=== PATIENT | male | born 1990 | race Two or more races ===

== ENCOUNTER 2022-07-22 15:28 | Emergency (ER) | payer BC, SELFPAY ==
--- NOTE | ~2022-07-22 | CT_ITS ---
EXAMINATION: CT HEAD WITHOUT CONTRAST CLINICAL INFORMATION: Dizziness COMPARISON: None TECHNIQUE: Contiguous axial imaging was performed from the skull base to vertex without intravenous administration of contrast. This CT examination was performed using dose optimization techniques as appropriate, variously including the following: *Automated exposure control *Adjustment of mA and/or kV according to patient size (this includes techniques or standardized protocols for targeted exams where dose is matched to indication/reason for exam; i.e. extremities or head) *Use of iterative reconstruction technique Dose: 684 mGy-cm FINDINGS: There is no evidence of acute intracranial hemorrhage or territorial infarction. No abnormal mass-effect or midline shift is seen. Kohler to white matter differentiation is well preserved. No extra axial fluid collections. The ventricles are normal in size and configuration. There is no abnormal attenuation within the brain parenchyma. The soft tissues and osseous structures are normal. The sinuses and mastoid air cells are clear. CT/CT head/brain wo IV con IMPRESSION: No acute intracranial pathology.
[2022-07-22 15:33] VITALS: BP 124/68; PULSE 62; RESP 18; TEMP 36; O2SAT 98; BMI 26.2
--- NOTE | 2022-07-22 15:33 | ED_ITS ---
HPI - General Adult General Chief complaint: Headache <KENISHA Damon - Last Filed: 07/22/22 15:35> Stated complaint: dizziness,head pressure,weak <KENISHA Damon - Last Filed: 07/22/22 15:35> Time Seen by Provider: 07/22/22 18:58 <KENISHA Damon - Last Filed: 07/22/22 15:35> Source: patient <Demetrice Dutta MD - Last Filed: 07/22/22 19:28> Mode of arrival: ambulatory <Demetrice Dutta MD - Last Filed: 07/22/22 19:28> Limitations: no limitations <Demetrice Dutta MD - Last Filed: 07/22/22 19:28> History of Present Illness HPI narrative: 32-year-old male came in for evaluation of dizziness and the room spinning. Patient woke up this morning feeling dizzy and feel the room spinning around him with nausea and vomiting, symptoms worse with changing position quickly especially his head from right to left left to right or bending down then stand. With patient's symptoms been having nausea and vomiting. No fever, no chills, no runny nose, no coughing, no sneezing, no hearing problem, no ear pain. Patient also was with sinus congestion. <Demetrice Dutta MD - Last Filed: 07/22/22 19:28> Related Data Home medications: Previous Rx's Medication Instructions Recorded meclizine 25 mg tablet 25 mg PO BID PRN dizziness #30 tabs 07/22/22 <KENISHA Damon - Last Filed: 07/22/22 15:35> Allergies/adverse reactions: Allergies Allergy/AdvReac Type Severity Reaction Status Date / Time No Known Allergies Allergy Unverified 04/01/20 17:20 <KENISHA Damon - Last Filed: 07/22/22 15:35> Review of Systems Review of Systems: All other systems are reviewed and are negative Constitutional: Reports as per HPI and Reports no additional constitutional complaints Eyes: Reports as per HPI and Reports no additional eye complaints Reports system reviewed and no additional complaints, except as documented Cardiovascular: Reports as per HPI and Reports no additional cardiovascular complaints Respiratory: Reports as per HPI and Reports no additional respiratory complaints Gastrointestinal: Reports as per HPI and Reports no additional gastrointestinal complaints Genitourinary: Reports no additional female genitourinary complaints Musculoskeletal: Reports no additional musculoskeletal complaints Skin/Breast: Reports system reviewed and no additional complaints, except as docu Psychiatric: Reports no additional psychiatric complaints Endocrine: Reports no additional endocrine complaints Hematologic/Lymphatic: Reports no additional hematologic/lymphatic complaints Allergic/Immunologic: Reports no additional allergic/immunologic complaints Reports system reviewed and no additional complaints, except as documented and Reports Abnormal speech present <Demetrice Dutta MD - Last Filed: 07/22/22 19:28> REPLACED BY [facility] Social History Social History: Social History Advance Directives: No Advance Directives Information Provided: No <KENISHA Damon - Last Filed: 07/22/22 15:35> Physical Exam ED Vital Signs: Vital Signs - 24 hr 07/22/22 15:33 Temperature 96.8 F Pulse Rate 62 Respiratory Rate 18 Blood Pressure 124/68 Pulse Oximetry 98 Oxygen Delivery Method Room Air BMI result Body Mass Index 26.2 <KENISHA Damon - Last Filed: 07/22/22 15:35> Vital Signs - 24 hr 07/22/22 15:33 Temperature 96.8 F Pulse Rate 62 Respiratory Rate 18 Blood Pressure 124/68 Pulse Oximetry 98 Oxygen Delivery Method Room Air BMI result Body Mass Index 26.2 Insert normal via vital signs have been reviewed as appeared to be correct. Blood pressure normal. Heart rate normal. Respiration rate normal. Temperature normal. Oxygen saturation normal. <Demetrice Dutta MD - Last Filed: 07/22/22 19:28> Appearance: Alert. Oriented X3. No acute distress. Head: Normal external exam. Normocephalic. Atraumatic. No Tovar signs noted. No raccoon eyes noted Eyes: PERRLA. EOMI. Conjunctiva and sclera normal. Eyelids normal. ENT: TM's Normal. Pharynx normal. Uvula midline. Moist mucous membranes. No trismus noted. No drooling noted. No muffled voice noted. Neck: Normal inspection. Neck supple. FROM. No adenopathy. Thyroid Normal. No meningeal signs. No neck mass noted. CVS: Normal heart rate and rhythm. Heart sound normal. No murmurs noted. Pulses normal throughout. Respiratory: No respiratory distress. Painless inspiration. Breath sounds normal. No wheezes/rales/rhonchi noted. Chest nontender. No accessory muscle usage noted or decreased air movement noted. Abdomen: Soft and nontender. Bowel sounds normal in all 4 quadrants. No distention noted. No organomegaly noted. No visible injury noted. Back: No CVA tenderness. Full range of motion noted. Skin: Skin warm and dry. Normal skin color. Normal skin turgor. No rashes/lesions/lacerations noted. Extremities: No lower extremity edema. Extremities exhibit normal range of motion. Extremities nontender. Neuro: Oriented X 3. Cranial nerve exam: II-XII are grossly intact No motor deficit. No sensory deficit. Reflexes normal. Cerebellar exam: No [id number] dysmetria, no nystagmus. <Demetrice Dutta MD - Last Filed: 07/22/22 19:28> Course Course Course Narrative: RME performed by Sola Jones PA-C. Patient is a 32 year old male presenting to the emergency department with dizziness, nausea, and feeling generally unwell. Labs and swabs ordered. Patient placed back in waiting room pending results and room availability. <KENISHA Damon - Last Filed: 07/22/22 15:35> Reevaluation(s) Reevaluation #1: Peripheral benign positional vertigo start on meclizine. <Demetrice Dutta MD - Last Filed: 07/22/22 19:28> Time: 19:23 <Demetrice Dutta MD - Last Filed: 07/22/22 19:28> Medical Decision Making Differential Diagnosis Differential Diagnoses: The differential diagnosis associated with the presentation includes (Sinusitis, upper respiratory infection, intracranial pathology, benign positional vertigo.) <Demetrice Dutta MD - Last Filed: 07/22/22 19:28> Lab Data MDM Lab Attestation statement: I reviewed the patient's lab results. <Demetrice Dutta MD - Last Filed: 07/22/22 19:28> Result Diagrams: 07/22/22 16:19 07/22/22 16:19 <KENISHA Damon - Last Filed: 07/22/22 15:35> Labs: Lab Results 07/22/22 07/22/22 07/22/22 Range/Units 16:19 16:19 16:19 WBC 6.9 (4.8-10.8) X10*3/uL RBC 5.08 (4.60-5.80) X10*6/uL Hgb 15.7 (14.0-18.0) g/dl Hct 45.7 (42.0-52.0) % MCV 90.0 (80.0-98.0) fL MCH 30.9 (27.0-33.0) pg MCHC 34.4 (31.0-36.0) g/dl RDW 11.8 (11.0-16.0) % Plt Count 220 (160-400) X10*3/uL MPV 9.7 (9.4-12.4) fL Immature Gran % (Auto) 0.1 (0.0-0.4) % Neut % (Auto) 58.0 (45-73) % Lymph % (Auto) 33.4 (20-40) % [place] % (Auto) 6.8 (2-11) % Eos % (Auto) 1.6 (0-4) % Baso % (Auto) 0.1 (0-2) % Lymph # (Auto) 2.3 (1.2-4.9) X10*3/uL [place] # (Auto) 0.5 (0.1-1.2) X10*3/uL Eos # (Auto) 0.1 (0.0-0.4) X10*3/uL Baso # (Auto) 0.0 (0.0-0.2) X10*3/uL Abs Immat Gran (auto) 0.01 (0.00-0.03) X10*3/uL Absolute Neuts (auto) 4.0 (2.0-8.3) x10*3/uL Absolute Nucleated RBC 0.000 (0.0-0.012) X10*3/uL Nucleated RBC % (auto) 0.0 (0.0-0.2) /100WBC Sodium 141 (135-145) mmol/L Potassium 4.4 (3.3-5.1) mmol/L Chloride 106 (96-108) mmol/L Carbon Dioxide 28 (22-29) mmol/L Anion Gap 11 L (12-20) BUN 14 (9-16) mg/dL Creatinine 0.98 (0.5-1.4) mg/dL Estim Creat Clear Calc 103.7 Estimated GFR > 60 Random Glucose 128 H (60-115) mg/dL Calcium 9.6 (8.4-10.2) mg/dL Magnesium 2.0 (1.6-2.6) mg/dL Total Bilirubin 0.7 (0.0-1.0) mg/dL AST 17 (5-37) U/L ALT 16 (0-40) U/L Alkaline Phosphatase 59 (39-117) U/L Total Protein 7.0 (6.5-8.0) g/dL Albumin 4.4 (3.5-5.0) g/dL Influenza Type A (PCR) NEGATIVE (Negative) Influenza Type B (PCR) NEGATIVE (Negative) RSV RNA Qual (PCR) NEGATIVE (Negative) SARS-CoV-2 RNA (RT-PCR) NEGATIVE (Negative) <KENISHA Damon - Last Filed: 07/22/22 15:35> Lab Results 07/22/22 07/22/22 07/22/22 Range/Units 16:19 16:19 16:19 WBC 6.9 (4.8-10.8) X10*3/uL RBC 5.08 (4.60-5.80) X10*6/uL Hgb 15.7 (14.0-18.0) g/dl Hct 45.7 (42.0-52.0) % MCV 90.0 (80.0-98.0) fL MCH 30.9 (27.0-33.0) pg MCHC 34.4 (31.0-36.0) g/dl RDW 11.8 (11.0-16.0) % Plt Count 220 (160-400) X10*3/uL MPV 9.7 (9.4-12.4) fL Immature Gran % (Auto) 0.1 (0.0-0.4) % Neut % (Auto) 58.0 (45-73) % Lymph % (Auto) 33.4 (20-40) % [place] % (Auto) 6.8 (2-11) % Eos % (Auto) 1.6 (0-4) % Baso % (Auto) 0.1 (0-2) % Lymph # (Auto) 2.3 (1.2-4.9) X10*3/uL [place] # (Auto) 0.5 (0.1-1.2) X10*3/uL Eos # (Auto) 0.1 (0.0-0.4) X10*3/uL Baso # (Auto) 0.0 (0.0-0.2) X10*3/uL Abs Immat Gran (auto) 0.01 (0.00-0.03) X10*3/uL Absolute Neuts (auto) 4.0 (2.0-8.3) x10*3/uL Absolute Nucleated RBC 0.000 (0.0-0.012) X10*3/uL Nucleated RBC % (auto) 0.0 (0.0-0.2) /100WBC Sodium 141 (135-145) mmol/L Potassium 4.4 (3.3-5.1) mmol/L Chloride 106 (96-108) mmol/L Carbon Dioxide 28 (22-29) mmol/L Anion Gap 11 L (12-20) BUN 14 (9-16) mg/dL Creatinine 0.98 (0.5-1.4) mg/dL Estim Creat Clear Calc 103.7 Estimated GFR > 60 Random Glucose 128 H (60-115) mg/dL Calcium 9.6 (8.4-10.2) mg/dL Magnesium 2.0 (1.6-2.6) mg/dL Total Bilirubin 0.7 (0.0-1.0) mg/dL AST 17 (5-37) U/L ALT 16 (0-40) U/L Alkaline Phosphatase 59 (39-117) U/L Total Protein 7.0 (6.5-8.0) g/dL Albumin 4.4 (3.5-5.0) g/dL Influenza Type A (PCR) NEGATIVE (Negative) Influenza Type B (PCR) NEGATIVE (Negative) RSV RNA Qual (PCR) NEGATIVE (Negative) SARS-CoV-2 RNA (RT-PCR) NEGATIVE (Negative) <Demetrice Dutta MD - Last Filed: 07/22/22 19:28> Independent Interpretation I performed an independent interpretation of an: CT Scan (Head: No acute intracranial pathology.) <Demetrice Dutta MD - Last Filed: 07/22/22 19:28> Radiology Impression Discussion of test interpretation with radiology: I have reviewed the radiologist's reading. <Demetrice Dutta MD - Last Filed: 07/22/22 19:28> Discharge Plan Discharge Clinical Impression: Benign paroxysmal positional vertigo <KENISHA Damon - Last Filed: 07/22/22 15:35> Patient Disposition: Home, Self-Care <KENISHA Damon - Last Filed: 07/22/22 15:35> Instructions: Benign Paroxysmal Positional Vertigo (ED) <KENISHA Damon - Last Filed: 07/22/22 15:35> Prescriptions: New meclizine 25 mg tablet 25 mg PO BID PRN (Reason: dizziness) Qty: 30 0RF <KENISHA Damon - Last Filed: 07/22/22 15:35> Referrals: Dominique Khoury PA [Primary Care Provider] - <KENISHA Damon - Last Filed: 07/22/22 15:35>
[2022-07-22 16:25] LABS: MANUAL DIFF FLAG NO
[2022-07-22 16:36] LABS: Basophils Percent Auto 0.1 % (0-2); Eosinophils Absolute Auto 0.1 X10*3/uL (0.0-0.4); Eosinophils Percent Auto 1.6 % (0-4); Hematocrit 45.7 % (42.0-52.0); Hemoglobin 15.7 g/dl (14.0-18.0); Imm Gran Abs Auto 0.01 X10*3/uL (0.00-0.03); Imm Gran Pct Auto 0.1 % (0.0-0.4); Lymphocytes Absolute Auto 2.3 X10*3/uL (1.2-4.9); Lymphocytes Percent Auto 33.4 % (20-40); Mean Corpuscular HGB Conc 34.4 g/dl (31.0-36.0); Mean Corpuscular Hemoglobin 30.9 pg (27.0-33.0); Mean Platelet Volume 9.7 fL (9.4-12.4); Monocytes Absolute Auto 0.5 X10*3/uL (0.1-1.2); Monocytes Percent Auto 6.8 % (2-11); Platelet Count 220 X10*3/uL (160-400); Red Blood Count 5.08 X10*6/uL (4.60-5.80); Red Cell Distribution Width 11.8 % (11.0-16.0); White Blood Count 6.9 X10*3/uL (4.8-10.8)
[2022-07-22 16:39] LABS: Alanine Aminotransferase 16 U/L (0-40); Albumin Level 4.4 g/dL (3.5-5.0); Alkaline Phosphatase 59 U/L (39-117); Anion Gap 11 (12-20); Aspartate Amino Transferase 17 U/L (5-37); Bilirubin Total 0.7 mg/dL (0.0-1.0); Blood Urea Nitrogen 14 mg/dL (9-16); Calcium 9.6 mg/dL (8.4-10.2); Carbon Dioxide 28 mmol/L (22-29); Chloride 106 mmol/L (96-108); Creatinine Clr Calc Pharmacy 103.7; Estimated Glomerular Filt Rate > 60; Glucose Random 128 mg/dL (60-115); Potassium 4.4 mmol/L (3.3-5.1); Sodium 141 mmol/L (135-145)
[2022-07-22 17:02] LABS: Influenza A PCR NEGATIVE (Negative); Influenza B PCR NEGATIVE (Negative); Resp Syncy Virus RNA Qual PCR NEGATIVE (Negative); SARS COV2 PCR INHOUSE NEGATIVE (Negative)
--- NOTE | 2022-07-22 19:02 | PC.NURSE ---
Pt resting quietly, given ice pack. No other needs expressed.
[2022-07-22] MEDS: Meclizine HCl 25 MG TABLET PO (19:28)
--- NOTE | 2022-07-22 19:30 | PC.NURSE ---
Pt taking to CT by engineer technical staff.
[2022-07-22] MEDS: Acetaminophen 325 MG TABLET 650 MG PO (21:16)
== END 2022-07-22 22:37 | disposition home or self-care (01) ==
PROVIDERS: Physician Assistant Medical; Emergency Provider Emergency Medicine; PCP Physician Assistant
DX: H81.10 Benign paroxysmal vertigo, unspecified ear (principal); R51.9 Headache, unspecified; Z20.822 Contact with and (suspected) exposure to COVID-19; Z20.828 Contact with and (suspected) exposure to other viral communicable diseases
CPT/HCPCS: 0241U; 70450; 80053; 83735; 85025; 99283; 99284

== ENCOUNTER 2022-10-24 17:04 | Emergency (ER) | payer BC, SELFPAY ==
--- NOTE | ~2022-10-24 | CT_ITS ---
EXAMINATION: CT ABDOMEN AND PELVIS WITHOUT CONTRAST CLINICAL INFORMATION: Bilateral flank pain COMPARISON: 08/24/2016 TECHNIQUE: Multidetector volumetric imaging was performed from the superior aspect of the liver through the pubic symphysis. Sagittal and coronal reformatted images were obtained on the technologist's workstation. This CT examination was performed using dose optimization techniques as appropriate, variously including the following: *Automated exposure control *Adjustment of mA and/or kV according to patient size (this includes techniques or standardized protocols for targeted exams where dose is matched to indication/reason for exam; i.e. extremities or head) *Use of iterative reconstruction technique DLP: 548 mGy-cm FINDINGS: LUNG BASES: The visualized lung bases are unremarkable. LIVER, GALLBLADDER, AND BILIARY TREE: The liver is normal in size, shape, and attenuation. No focal hepatic lesion or biliary ductal dilatation is present. The gallbladder is unremarkable with no evidence of radiopaque gallstones, gallbladder wall thickening, or obvious pericholecystic inflammatory changes. PANCREAS: Unremarkable. SPLEEN: Unremarkable. ADRENAL GLANDS: Unremarkable. KIDNEYS AND URETERS: The current study, there is a 5 mm central left-sided stone. Adjacent 1 mm lower pole calyceal stone. No right-sided stone. No hydronephrosis or perinephric abnormality. BLADDER: Unremarkable. GASTROINTESTINAL TRACT: Scattered diverticula without acute inflammatory changes. No small bowel or mesenteric lesion. Appendix appears normal. ABDOMINAL WALL: No significant hernia is appreciated. LYMPH NODES: Normal. VASCULAR: Unremarkable. PELVIC VISCERA: Unremarkable. OSSEOUS STRUCTURES: Unremarkable. CT/CT abdomen pelvis wo IV con IMPRESSION: Nonobstructing left-sided renal calculi as above. Fleischner guidelines were followed.
[2022-10-24 17:12] VITALS: BP 140/65; PULSE 71; RESP 18; TEMP 36.8; O2SAT 98; BMI 27.0
--- NOTE | 2022-10-24 17:12 | ED.BACK ---
HPI - Back Pain/Injury General Chief Complaint: Urogenital-Male <KENISHA Mireles - Last Filed: 10/24/22 17:15> Stated Complaint: Lower back pain/?Kidney stones <KENISHA Mireles - Last Filed: 10/24/22 17:15> Time Seen by Provider: 10/24/22 21:15 <KENISHA Mireles - Last Filed: 10/24/22 17:15> Source: patient <Brittany Zuñiga MD - Last Filed: 10/24/22 22:32> Mode of arrival: ambulatory <Brittany Zuñiga MD - Last Filed: 10/24/22 22:32> History of Present Illness HPI Narrative: 32-year-old male with history of renal colic presents with complaints of bilateral back discomfort and reports irritation with urination but denies any fever, chills and provides additional information stating that he lifted something heavy at work a few days ago. Denies any fevers, chills, drug use and denies any difficulty with bowel or bladder. <Brittany Zuñiga MD - Last Filed: 10/24/22 22:32> Related Data Home Medications: Previous Rx's Medication Instructions Recorded meclizine 25 mg tablet 25 mg PO BID PRN dizziness #30 tabs 07/22/22 cyclobenzaprine 5 mg tablet 5 mg PO BEDTIME PRN muscle spasm 10/24/22 #4 tabs <KENISHA Mireles - Last Filed: 10/24/22 17:15> Allergies/Adverse Reactions: Allergies Allergy/AdvReac Type Severity Reaction Status Date / Time No Known Allergies Allergy Unverified 04/01/20 17:20 <KENISHA Mireles - Last Filed: 10/24/22 17:15> Review of Systems Review of Systems: Pertinent positives and negatives as stated in HPI <Brittany Zuñiga MD - Last Filed: 10/24/22 22:32> PMFSH Past Medical History Source: nursing notes reviewed <Brittany Zuñiga MD - Last Filed: 10/24/22 22:32> Social History Social History: Social History Smoked in Last 30 Days: No Use of substances other than those prescribed or required for medical reasons: No Advance Directives: No Advance Directives Information Provided: Yes <KENISHA Mireles - Last Filed: 10/24/22 17:15> Physical Exam Vital Signs: Vital Signs: Last Vital Signs Temp 97.7 F 10/24/22 20:29 Pulse 68 10/24/22 20:29 Resp 15 10/24/22 20:29 BP 110/71 10/24/22 20:29 Pulse Ox 94 10/24/22 20:29 O2 Del Method Room Air 10/24/22 20:29 BMI result Body Mass Index 27.0 <KENISHA Mireles - Last Filed: 10/24/22 17:15> Vital Signs: Last Vital Signs Temp 97.7 F 10/24/22 20:29 Pulse 68 10/24/22 20:29 Resp 15 10/24/22 20:29 BP 110/71 10/24/22 20:29 Pulse Ox 94 10/24/22 20:29 O2 Del Method Room Air 10/24/22 20:29 BMI result Body Mass Index 27.0 VITAL SIGNS: Reviewed. GENERAL: Well developed, well nourished, in no acute distress. HEAD: Normocephalic/atraumatic EYES: PERRLA, EOMI LUNGS: Normal breath sounds. No adventitious sounds or accessory muscle use. SpO2<94> CARDIOVASCULAR: Regular rate and rhythm without noted murmurs ABDOMEN: Soft, non-tender, non-distended with bowel sounds. BACK: No midline vertebral tenderness or step-offs, pre extensive muscle pain on palpation from lower thoracic to include paraspinal lumbar area without erythema. MUSCULOSKELETAL: No tenderness, deformities, or effusions noted on gross inspection. EXTREMITIES: No cyanosis, clubbing or edema. SKIN: Inspection of the skin reveals no rashes NEUROLOGIC: Alert and oriented x 4. Strength and sensation to light touch were grossly intact x 4. <Brittany Zuñiga MD - Last Filed: 10/24/22 22:32> Course Course Course Narrative: RME--32yo M w/ PMHx renal stone c/o bilateral flank pain radiating to abdomen > R side x4 days. Also reports dysuria. denies hematuria, N/V Labs, UA, CT ordered <KENISHA Mireles - Last Filed: 10/24/22 17:15> Medications Administered Discontinued Medications Generic Name Dose Route Start Last Admin Trade Name Freq PRN Reason Stop Dose Admin Acetaminophen 975 mg 10/24/22 21:52 10/24/22 22:21 Acetaminophen 325 Mg Tablet PO 10/24/22 21:53 975 mg ONCE ONE Administration Ibuprofen 400 mg 10/24/22 21:52 10/24/22 22:22 Ibuprofen 400 Mg Tablet PO 10/24/22 21:53 400 mg ONCE ONE Administration Lidocaine 1 patch 10/24/22 22:12 10/24/22 22:22 Lidocaine 4 % Patch Adh..Patch TRANSDERMA 10/24/22 22:13 1 patch ONCE ONE Administration Protocol <KENISHA Mireles - Last Filed: 10/24/22 17:15> Medications Administered Discontinued Medications Generic Name Dose Route Start Last Admin Trade Name Freq PRN Reason Stop Dose Admin Acetaminophen 975 mg 10/24/22 21:52 10/24/22 22:21 Acetaminophen 325 Mg Tablet PO 10/24/22 21:53 975 mg ONCE ONE Administration Ibuprofen 400 mg 10/24/22 21:52 10/24/22 22:22 Ibuprofen 400 Mg Tablet PO 10/24/22 21:53 400 mg ONCE ONE Administration Lidocaine 1 patch 10/24/22 22:12 10/24/22 22:22 Lidocaine 4 % Patch Adh..Patch TRANSDERMA 10/24/22 22:13 1 patch ONCE ONE Administration Protocol <Brittany Zuñiga MD - Last Filed: 10/24/22 22:32> Medical Decision Making Medical Decision Making MDM Narrative: 32-year-old male with history and clinical presentation unlikely to be renal colic given the bilaterality of presentation and suspect this is more musculoskeletal in etiology given the description of lifting something at work. I reviewed all investigations to include imaging and although there is a nonobstructing renal calculus on the left there are no other intra-abdominal findings. Lab work without acute findings. My interpretation is this is musculoskeletal in nature and likely involves combination of strain and spasm. Patient was provided with combination analgesics to include a lidocaine patch. <Brittany Zuñiga MD - Last Filed: 10/24/22 22:32> Differential Diagnosis Please see the discussion above <Brittany Zuñiga MD - Last Filed: 10/24/22 22:32> Lab Data Please see the discussion above <Brittany Zuñiga MD - Last Filed: 10/24/22 22:32> Result Diagrams: 10/24/22 17:37 10/24/22 17:37 <KENISHA Mireles - Last Filed: 10/24/22 17:15> Labs: Lab Results 10/24/22 10/24/22 10/24/22 Range/Units 17:37 17:37 21:06 WBC 7.6 (4.8-10.8) X10*3/uL RBC 4.69 (4.60-5.80) X10*6/uL Hgb 14.6 (14.0-18.0) g/dl Hct 41.1 L (42.0-52.0) % MCV 87.6 (80.0-98.0) fL MCH 31.1 (27.0-33.0) pg MCHC 35.5 (31.0-36.0) g/dl RDW 11.8 (11.0-16.0) % Plt Count 196 (160-400) X10*3/uL MPV 9.6 (9.4-12.4) fL Immature Gran % (Auto) 0.3 (0.0-0.4) % Neut % (Auto) 47.7 (45-73) % Lymph % (Auto) 41.3 H (20-40) % [place] % (Auto) 6.9 (2-11) % Eos % (Auto) 3.4 (0-4) % Baso % (Auto) 0.4 (0-2) % Lymph # (Auto) 3.2 (1.2-4.9) X10*3/uL [place] # (Auto) 0.5 (0.1-1.2) X10*3/uL Eos # (Auto) 0.3 (0.0-0.4) X10*3/uL Baso # (Auto) 0.0 (0.0-0.2) X10*3/uL Abs Immat Gran (auto) 0.02 (0.00-0.03) X10*3/uL Absolute Neuts (auto) 3.6 (2.0-8.3) x10*3/uL Absolute Nucleated RBC 0.000 (0.0-0.012) X10*3/uL Nucleated RBC % (auto) 0.0 (0.0-0.2) /100WBC Sodium 140 (135-145) mmol/L Potassium 4.3 (3.3-5.1) mmol/L Chloride 106 (96-108) mmol/L Carbon Dioxide 25 (22-29) mmol/L Anion Gap 13 (12-20) BUN 18 H (9-16) mg/dL Creatinine 1.09 (0.5-1.4) mg/dL Estim Creat Clear Calc 93.2 Estimated GFR > 60 Random Glucose 115 (60-115) mg/dL Calcium 9.3 (8.4-10.2) mg/dL Magnesium 1.9 (1.6-2.6) mg/dL Total Bilirubin 0.6 (0.0-1.0) mg/dL Direct Bilirubin 0.2 (0.0-0.5) mg/dL AST 19 (5-37) U/L ALT 18 (0-40) U/L Alkaline Phosphatase 59 (39-117) U/L Total Protein 6.4 L (6.5-8.0) g/dL Albumin 4.2 (3.5-5.0) g/dL Lipase 15 (8-78) U/L Urine Color Yellow Urine Appearance Clear Urine pH 6.5 (5.0-9.0) Ur Specific [place] 1.010 (1.005-1.025) Urine Protein Negative (Neg-Trace) mg/dL Urine Glucose (UA) Negative (Negative) mg/dL Urine Ketones Negative (Negative) mg/dL Urine Blood Negative (Negative) Urine Nitrite Negative (Negative) Ur Leukocyte Esterase Negative (Negative) <KENISHA Mireles - Last Filed: 10/24/22 17:15> Lab Results 10/24/22 10/24/22 10/24/22 Range/Units 17:37 17:37 21:06 WBC 7.6 (4.8-10.8) X10*3/uL RBC 4.69 (4.60-5.80) X10*6/uL Hgb 14.6 (14.0-18.0) g/dl Hct 41.1 L (42.0-52.0) % MCV 87.6 (80.0-98.0) fL MCH 31.1 (27.0-33.0) pg MCHC 35.5 (31.0-36.0) g/dl RDW 11.8 (11.0-16.0) % Plt Count 196 (160-400) X10*3/uL MPV 9.6 (9.4-12.4) fL Immature Gran % (Auto) 0.3 (0.0-0.4) % Neut % (Auto) 47.7 (45-73) % Lymph % (Auto) 41.3 H (20-40) % [place] % (Auto) 6.9 (2-11) % Eos % (Auto) 3.4 (0-4) % Baso % (Auto) 0.4 (0-2) % Lymph # (Auto) 3.2 (1.2-4.9) X10*3/uL [place] # (Auto) 0.5 (0.1-1.2) X10*3/uL Eos # (Auto) 0.3 (0.0-0.4) X10*3/uL Baso # (Auto) 0.0 (0.0-0.2) X10*3/uL Abs Immat Gran (auto) 0.02 (0.00-0.03) X10*3/uL Absolute Neuts (auto) 3.6 (2.0-8.3) x10*3/uL Absolute Nucleated RBC 0.000 (0.0-0.012) X10*3/uL Nucleated RBC % (auto) 0.0 (0.0-0.2) /100WBC Sodium 140 (135-145) mmol/L Potassium 4.3 (3.3-5.1) mmol/L Chloride 106 (96-108) mmol/L Carbon Dioxide 25 (22-29) mmol/L Anion Gap 13 (12-20) BUN 18 H (9-16) mg/dL Creatinine 1.09 (0.5-1.4) mg/dL Estim Creat Clear Calc 93.2 Estimated GFR > 60 Random Glucose 115 (60-115) mg/dL Calcium 9.3 (8.4-10.2) mg/dL Magnesium 1.9 (1.6-2.6) mg/dL Total Bilirubin 0.6 (0.0-1.0) mg/dL Direct Bilirubin 0.2 (0.0-0.5) mg/dL AST 19 (5-37) U/L ALT 18 (0-40) U/L Alkaline Phosphatase 59 (39-117) U/L Total Protein 6.4 L (6.5-8.0) g/dL Albumin 4.2 (3.5-5.0) g/dL Lipase 15 (8-78) U/L Urine Color Yellow Urine Appearance Clear Urine pH 6.5 (5.0-9.0) Ur Specific [place] 1.010 (1.005-1.025) Urine Protein Negative (Neg-Trace) mg/dL Urine Glucose (UA) Negative (Negative) mg/dL Urine Ketones Negative (Negative) mg/dL Urine Blood Negative (Negative) Urine Nitrite Negative (Negative) Ur Leukocyte Esterase Negative (Negative) <Brittany Zuñiga MD - Last Filed: 10/24/22 22:32> Radiology Impression Radiologist Impression: My interpretation is in agreement with radiology's impression of the imaging studies. <Brittany Zuñiga MD - Last Filed: 10/24/22 22:32> External Record Review External record reviewed: Prior outpatient labs <Brittany Zuñiga MD - Last Filed: 10/24/22 22:32> Discharge Plan Discharge Clinical Impression: Back pain, Muscle strain, Muscle spasm <KENISHA Mireles - Last Filed: 10/24/22 17:15> Patient Disposition: Home, Self-Care <KENISHA Mireles - Last Filed: 10/24/22 17:15> Instructions: Muscle Strain (ED), Muscle Spasm (ED), Back Pain (ED), Lower Back Exercises (ED) <KENISHA Mireles - Last Filed: 10/24/22 17:15> Additional Instructions: 1. Tylenol 1000 mg, orally, every 6 hours as needed for pain control. Do not exceed 4000 mg within 24 hours. 2. Ibuprofen 400 mg, orally with milk or food, every 6 hours as needed for pain control. I recommend that you take this in combination with Tylenol for improved symptom relief 3. Lidocaine patch, apply to area of maximal tenderness as directed on the outside packaging. 4. Follow-up with your primary care provider. Return to the ER for any worsening symptoms. <KENISHA Mireles - Last Filed: 10/24/22 17:15> Prescriptions: New cyclobenzaprine 5 mg tablet 5 mg PO BEDTIME PRN (Reason: muscle spasm) Qty: 4 0RF No Action meclizine 25 mg tablet 25 mg PO BID PRN (Reason: dizziness) Qty: 30 0RF <KENISHA Mireles - Last Filed: 10/24/22 17:15> Referrals: Dominique Khoury PA [Primary Care Provider] - <KENISHA Mireles - Last Filed: 10/24/22 17:15>
[2022-10-24 17:43] LABS: MANUAL DIFF FLAG NO
[2022-10-24 17:47] LABS: Basophils Percent Auto 0.4 % (0-2); Eosinophils Absolute Auto 0.3 X10*3/uL (0.0-0.4); Eosinophils Percent Auto 3.4 % (0-4); Hematocrit 41.1 % (42.0-52.0); Hemoglobin 14.6 g/dl (14.0-18.0); Imm Gran Abs Auto 0.02 X10*3/uL (0.00-0.03); Imm Gran Pct Auto 0.3 % (0.0-0.4); Lymphocytes Absolute Auto 3.2 X10*3/uL (1.2-4.9); Lymphocytes Percent Auto 41.3 % (20-40); Mean Corpuscular HGB Conc 35.5 g/dl (31.0-36.0); Mean Corpuscular Hemoglobin 31.1 pg (27.0-33.0); Mean Corpuscular Volume 87.6 fL (80.0-98.0); Mean Platelet Volume 9.6 fL (9.4-12.4); Monocytes Absolute Auto 0.5 X10*3/uL (0.1-1.2); Monocytes Percent Auto 6.9 % (2-11); Neutrophils Absolute Auto 3.6 x10*3/uL (2.0-8.3); Neutrophils Percent Auto 47.7 % (45-73); Platelet Count 196 X10*3/uL (160-400); Red Blood Count 4.69 X10*6/uL (4.60-5.80); Red Cell Distribution Width 11.8 % (11.0-16.0); White Blood Count 7.6 X10*3/uL (4.8-10.8)
[2022-10-24 18:03] LABS: Alanine Aminotransferase 18 U/L (0-40); Albumin Level 4.2 g/dL (3.5-5.0); Alkaline Phosphatase 59 U/L (39-117); Anion Gap 13 (12-20); Aspartate Amino Transferase 19 U/L (5-37); Bilirubin Direct 0.2 mg/dL (0.0-0.5); Bilirubin Total 0.6 mg/dL (0.0-1.0); Blood Urea Nitrogen 18 mg/dL (9-16); Calcium 9.3 mg/dL (8.4-10.2); Carbon Dioxide 25 mmol/L (22-29); Chloride 106 mmol/L (96-108); Creatinine Clr Calc Pharmacy 93.2; Estimated Glomerular Filt Rate > 60; Glucose Random 115 mg/dL (60-115); Lipase 15 U/L (8-78); Magnesium 1.9 mg/dL (1.6-2.6); Potassium 4.3 mmol/L (3.3-5.1); Sodium 140 mmol/L (135-145); Total Protein 6.4 g/dL (6.5-8.0)
[2022-10-24 20:29] VITALS: BP 110/71; PULSE 68; RESP 15; TEMP 36.5; O2SAT 94
[2022-10-24 21:19] LABS: Appearance Urine Clear; Color Urine Yellow; Glucose Urine UA Negative (Negative); Leukocyte Esterase Urine Negative (Negative); Nitrite Urine Negative (Negative); PH 6.5 (5.0-9.0); Urine Blood Negative (Negative); Urine Ketones Negative (Negative); Urine Protein Negative (Neg-Trace)
[2022-10-24] MEDS: Acetaminophen 325 MG TABLET 975 MG PO (22:21)
[2022-10-24] MEDS: Lidocaine 4 % Patch ADH..PATCH 1 PATCH TRANSDERMA (22:22)
[2022-10-24] MEDS: Ibuprofen 400 MG TABLET PO (22:22)
== END 2022-10-24 22:40 | disposition home or self-care (01) ==
PROVIDERS: Physician Assistant; Emergency Provider Student in an Organized Health Care Education/Training Program; PCP Physician Assistant
DX: M54.50 Low back pain, unspecified (principal); M62.830 Muscle spasm of back; R10.2 Pelvic and perineal pain; Z79.899 Other long term (current) drug therapy
CPT/HCPCS: 36415; 74176; 80048; 80076; 81003; 83690; 83735; 85025; 99284

== ENCOUNTER 2024-04-07 16:02 | Emergency (ER) | payer BC, SELFPAY ==
--- NOTE | ~2024-04-07 | CT_ITS ---
EXAMINATION: CT ABDOMEN AND PELVIS WITH CONTRAST CLINICAL INFORMATION: Pain. COMPARISON: October 24, 2022 TECHNIQUE: Multidetector volumetric images were obtained from the superior aspect of the liver through the pubic symphysis following administration 85 mL of Omnipaque 350 intravenous contrast. Sagittal and coronal reformatted images were obtained on the technologist's workstation. Oral contrast: No This CT examination was performed using dose optimization techniques as appropriate, variously including the following: *Automated exposure control *Adjustment of mA and/or kV according to patient size (this includes techniques or standardized protocols for targeted exams where dose is matched to indication/reason for exam; i.e. extremities or head) *Use of iterative reconstruction technique DLP: 486 mGy-cm FINDINGS: LUNG BASES: The visualized lung bases are unremarkable. LIVER, GALLBLADDER, AND BILIARY TREE: The liver is normal in size, shape, and attenuation. No focal hepatic lesion or biliary ductal dilatation is present. The gallbladder is unremarkable with no evidence of radiopaque gallstones, gallbladder wall thickening, or obvious pericholecystic inflammatory changes. PANCREAS: Unremarkable. SPLEEN: Unremarkable. ADRENAL GLANDS: Unremarkable. KIDNEYS AND URETERS: The kidneys are normal in size, shape, and attenuation. There is a 5 mm nonobstructing calculus mid pole left kidney. There is a 1.2 cm cyst mid to lower pole left kidney. There is no hydronephrosis. BLADDER: Unremarkable. GASTROINTESTINAL TRACT: The small and large bowel are unremarkable. The appendix is unremarkable. ABDOMINAL WALL: There is a small umbilical hernia containing fat. LYMPH NODES: Normal. VASCULAR: Unremarkable. PELVIC VISCERA: Unremarkable. OSSEOUS STRUCTURES: Unremarkable. CT/CT abdomen pelvis w IV con IMPRESSION: 5 mm nonobstructing left renal calculus. Small left renal cyst. Small umbilical hernia containing fat. No acute intra-abdominal process. Fleischner guidelines were followed. Electronically signed by: Zia Lentz MD 04/08/2024 01:46 AM EDT
[2024-04-07 16:24] VITALS: BP 112/67; PULSE 77; RESP 16; TEMP 36.6; O2SAT 98; BMI 26.4
--- NOTE | 2024-04-07 16:31 | ED.GENADULT ---
HPI - General Adult General Chief complaint: Abdominal Pain Stated complaint: upper abd pain Time Seen by Provider: 04/07/24 22:58 Source: patient Mode of arrival: ambulatory Limitations: no limitations History of Present Illness ED Provider: Erasto Eden pA-C HPI narrative: 34-year-old male presents to the ED for left upper quadrant abdominal pain with dyspepsia, blood acid burning, and feeling bloating. Patient states LUQ pain after eating food. Patient denies any chest pain, shortness of breath, fever, chills, flank pain, dysuria, hematuria, symptoms or any lower abdominal pain. Patient denies any pleurisy Related Data Previous Rx's ?Medication ?Instructions ?Recorded meclizine 25 mg tablet 25 mg PO BID PRN dizziness #30 tabs 07/22/22 cyclobenzaprine 5 mg tablet 5 mg PO BEDTIME PRN muscle spasm 10/24/22 #4 tabs famotidine 20 mg tablet (Pepcid) 20 mg PO BID 7 days #14 tabs 04/08/24 naproxen 500 mg tablet 500 mg PO BID PRN pain 7 days #14 04/08/24 tabs Allergies Allergy/AdvReac Type Severity Reaction Status Date / Time No Known Allergies Allergy Verified 04/07/24 16:25 Review of Systems Review of Systems: Left upper quadrant abdominal Yes all other systems are reviewed and are negative Physical Exam ED Vital Signs: Vital Signs - 24 hr 04/08/24 02:37 Temperature 98.2 F Pulse Rate 54 Respiratory Rate 20 Blood Pressure 113/80 Pulse Oximetry 98 Oxygen Delivery Method Room Air BMI result Body Mass Index 26.4 Const General: cooperative, healthy appearing, comfortable, no acute distress, well developed, alert, awake and Physically active Orientation/consciousness: patient oriented x3 HENMT Head: Yes normal to inspection, Yes No palpable skull fracture present, Yes normocephalic, Yes atraumatic and No abrasion Eyes General: appearance normal, both eyes and all related structures Neck Neck: Yes normal visual inspection, Yes full ROM, Yes no lymphadenopathy, Yes no meningeal signs, Yes trachea midline, Yes supple, No anterior neck swelling and No tender Chest Chest palpation & inspection: normal inspection of the chest and normal palpation of entire chest wall Resp Effort & Inspection: normal respiratory effort Auscultation: clear to auscultation bilaterally and abnormal I/E ratio Cardio Jugular venous distension: no JVD Heart sounds: S1 normal heart sound present and S2 normal heart sound present GI Inspection: Yes normal to inspection Palpation (GI): Soft to palpation, not firm, Tenderness to palpation present (GI) in the LUQ, no guarding and not rigid General: Yes no CVA tenderness Back/Spine/Pelvis Back: no CVA tenderness and No back tenderness Skin General skin exam: no rashes or lesions noted, elasticity normal and turgor normal Neuro General: patient oriented x3, gait normal, tone normal, moves all extremities, Normal light touch and pain sensation, no meningeal signs, no focal motor deficits, CN's II-XI intact bilaterally and normal sensation to monofilament Extrem General: Yes normal to inspection, Yes full ROM and Yes capillary refill normal Psych Appearance: grossly normal, well kempt and not disheveled Course Course Course Narrative: RME performed by Soal Jones PA-C. Patient is a 34 year old assigned male at presenting to the emergency department with LUQ abdominal pain and bloating. Patient states over the last 4-5 days he has had left upper quadrant abdominal pain and bloating. Detailed physical exam and review of systems are deferred to the change management administrator. Labs and swabs ordered. Patient placed back in the waiting room pending room availability and results. Medications Administered Discontinued Medications Generic Name Dose Route Start Last Admin Trade Name Raul PRN Reason Stop Dose Admin Al Hydroxide/Mg Hydroxide 30 ml 04/07/24 23:19 04/07/24 23:30 Magnesium Hydrox/Alum Hydrox 30 Ml Oral.Susp PO 04/07/24 23:20 30 ml ONCE ONE Administration Belladonna Alkaloids/Phenobarbital 10 ml 04/07/24 23:19 04/07/24 23:30 Phenobarb/Hyoscy/Atropine/Scop 10 Ml Elixir PO 04/07/24 23:20 10 ml ONCE ONE Administration Famotidine 20 mg 04/07/24 23:19 04/07/24 23:30 Famotidine 20 Mg Tablet PO 04/07/24 23:20 20 mg ONCE ONE Administration Iohexol 85 ml 04/08/24 01:10 04/08/24 01:10 Iohexol 350 Mg/Ml 100 Ml Infus..Btl IV 04/08/24 01:11 85 ml ONCE ONE Administration Lidocaine HCl 15 ml 04/07/24 23:19 04/07/24 23:30 Lidocaine Hcl Viscous 2 % 15 Ml Solution MUCOUS MEM 04/07/24 23:20 15 ml ONCE ONE Administration Medical Decision Making Medical Decision Making [facility] Narrative: 34-year-old male presents to ED for left upper quadrant pain presents for the past 4 days. Patient denies any chest pain, shortness of breath, fever, chills, swelling, coughing up blood, pleurisy, or any recent trauma. Patient's EKG troponin negative after having symptoms for 4 days. UA shows some blood patient is sent for abdominal CT scan. Rest of labs is normal. Abdominal CT scan shows left renal calculi small hiatal hernia. Patient was given GI cocktail. Patient is safe for discharge. not suspecting heart attack. not suspecting pneumothorax, hemothorax, pneumonia, or CHF Differential Diagnosis Differential Diagnoses: The differential diagnosis associated with the presentation includes (GERD, pancreatitis, kidney stone, cholecystitis) Admission/Observation Consideration of admission/observation: Escalation of care including admission/observation considered Lab Data [facility] Lab Attestation statement: I reviewed the patient's lab results. 04/07/24 17:06 04/07/24 17:06 Labs: Lab Results 04/07/24 04/07/24 04/08/24 Range/Units 17:06 23:27 00:34 WBC 7.9 (4.8-10.8) X10*3/uL RBC 4.90 (4.60-5.80) X10*6/uL Hgb 15.3 (14.0-18.0) g/dl Hct 43.3 (42.0-52.0) % MCV 88.4 (80.0-98.0) fL MCH 31.2 (27.0-33.0) pg MCHC 35.3 (31.0-36.0) g/dl RDW 11.9 (11.0-16.0) % Plt Count 195 (160-400) X10*3/uL MPV 9.6 (9.4-12.4) fL Immature Gran % (Auto) 0.1 (0.0-0.4) % Neut % (Auto) 54.9 (45-73) % Lymph % (Auto) 33.2 (20-40) % Morris % (Auto) 8.5 (2-11) % Eos % (Auto) 2.9 (0-4) % Baso % (Auto) 0.4 (0-2) % Lymph # (Auto) 2.6 (1.2-4.9) X10*3/uL Morris # (Auto) 0.7 (0.1-1.2) X10*3/uL Eos # (Auto) 0.2 (0.0-0.4) X10*3/uL Baso # (Auto) 0.0 (0.0-0.2) X10*3/uL Abs Immat Gran (auto) 0.01 (0.00-0.03) X10*3/uL Absolute Neuts (auto) 4.4 (2.0-8.3) x10*3/uL Absolute Nucleated RBC 0.000 (0.0-0.012) X10*3/uL Nucleated RBC % (auto) 0.0 (0.0-0.2) /100WBC Sodium 141 (135-145) mmol/L Potassium 4.0 (3.3-5.1) mmol/L Chloride 106 (96-108) mmol/L Carbon Dioxide 29 (22-29) mmol/L Anion Gap 10 L (12-20) BUN 18 H (9-16) mg/dL Creatinine 1.06 (0.5-1.4) mg/dL Estim Creat Clear Calc 94.1 Estimated GFR > 60 Random Glucose 74 (60-115) mg/dL Calcium 9.7 (8.4-10.2) mg/dL Magnesium 2.0 (1.6-2.6) mg/dL Total Bilirubin 0.6 (0.0-1.0) mg/dL AST 20 (5-37) U/L ALT 20 (0-40) U/L Alkaline Phosphatase 59 (39-117) U/L Troponin I High Sens < 2.7 (<3.5-35.0) ng/L Total Protein 6.9 (6.5-8.0) g/dL Albumin 4.4 (3.5-5.0) g/dL Lipase 18 (8-78) U/L Urine Color Yellow Urine Appearance Clear Urine pH 6.0 (5.0-9.0) Ur Specific [place] 1.025 (1.005-1.025) Urine Protein Negative (Neg-Trace) mg/dL Urine Glucose (UA) 250 H (Negative) mg/dL Urine Ketones Negative (Negative) mg/dL Urine Blood Small (1+) H (Negative) Urine Nitrite Negative (Negative) Ur Leukocyte Esterase Negative (Negative) Urine RBC 11-20 H (0-2) /HPF Urine WBC 0-5 (0-5) /HPF Ur Squamous Epith Cells 0-2 (0-2) /HPF Urine Bacteria None Seen (None Seen) Hyaline Casts 0-2 (0-2) /LPF Influenza Type A (PCR) NEGATIVE (Negative) Influenza Type B (PCR) NEGATIVE (Negative) RSV RNA Qual (PCR) NEGATIVE (Negative) SARS-CoV-2 RNA (RT-PCR) NEGATIVE (Negative) Independent Interpretation I performed an independent interpretation of an: EKG (Normal Sinus rhytm. negative STEMi) and CT Scan Radiology Impression Discussion of test interpretation with radiology: I have reviewed the radiologist's reading. Independent Historian Clinical information obtained from an independent historian. History obtained from or confirmed by: Other (patient) External Record Review External record reviewed: Other (prior visits) Prescription Management I considered prescription management with: Other (GERD) Discharge Plan Discharge Clinical Impression: GERD (gastroesophageal reflux disease), Calculus, renal, Hernia, umbilical Patient Disposition: Home, Self-Care Instructions: Kidney Stones (ED), Umbilical Hernia (ED), Gastroesophageal Reflux Disease (ED), Abdominal Pain (ED) Additional Instructions: Return to the ED immediately for any nausea, vomiting, abdominal pain, flank pain, fever, chills, dysuria, hematuria, blood in stool, diarrhea, chest pain, shortness of breath, or any other concerning symptoms. Recommend follow-up with primary care provider. CT/CT abdomen pelvis w IV con IMPRESSION: 5 mm nonobstructing left renal calculus. Small left renal cyst. Small umbilical hernia containing fat. No acute intra-abdominal process. Fleischner guidelines were followed. Electronically signed by: Zia Lentz MD 04/08/2024 01:46 AM EDT Prescriptions: New famotidine [Pepcid] 20 mg tablet 20 mg PO BID 7 Days Qty: 14 0RF naproxen 500 mg tablet 500 mg PO BID PRN (Reason: pain) 7 Days Qty: 14 0RF No Action meclizine 25 mg tablet 25 mg PO BID PRN (Reason: dizziness) Qty: 30 0RF cyclobenzaprine 5 mg tablet 5 mg PO BEDTIME PRN (Reason: muscle spasm) Qty: 4 0RF Referrals: [facility] [place] [facility] Gastroenterology Services [Provider Group] (. Like symptoms. May need endoscopy. Patient states pain after ED) [facility] [place] General Surgeons [Provider Group] (Small umbilical hernia) [facility] [place] [facility] Urology Services [Provider Group] (Left renal 5 mm nonobstructive calculus) Stand Alone Forms: Work/School Release Interventions: ED Discharge Assessment Last Done: 04/08/24 02:37 Discharge Date/Time: 04/08/24 02:41 Print Language: Sudanese
[2024-04-07 17:11] LABS: MANUAL DIFF FLAG NO
[2024-04-07 17:13] LABS: Basophils Percent Auto 0.4 % (0-2); Eosinophils Absolute Auto 0.2 X10*3/uL (0.0-0.4); Eosinophils Percent Auto 2.9 % (0-4); Hematocrit 43.3 % (42.0-52.0); Hemoglobin 15.3 g/dl (14.0-18.0); Imm Gran Abs Auto 0.01 X10*3/uL (0.00-0.03); Imm Gran Pct Auto 0.1 % (0.0-0.4); Lymphocytes Absolute Auto 2.6 X10*3/uL (1.2-4.9); Lymphocytes Percent Auto 33.2 % (20-40); Mean Corpuscular HGB Conc 35.3 g/dl (31.0-36.0); Mean Corpuscular Hemoglobin 31.2 pg (27.0-33.0); Mean Corpuscular Volume 88.4 fL (80.0-98.0); Mean Platelet Volume 9.6 fL (9.4-12.4); Monocytes Absolute Auto 0.7 X10*3/uL (0.1-1.2); Monocytes Percent Auto 8.5 % (2-11); Neutrophils Absolute Auto 4.4 x10*3/uL (2.0-8.3); Neutrophils Percent Auto 54.9 % (45-73); Platelet Count 195 X10*3/uL (160-400); Red Cell Distribution Width 11.9 % (11.0-16.0); White Blood Count 7.9 X10*3/uL (4.8-10.8)
[2024-04-07 17:28] LABS: Alanine Aminotransferase 20 U/L (0-40); Albumin Level 4.4 g/dL (3.5-5.0); Alkaline Phosphatase 59 U/L (39-117); Anion Gap 10 (12-20); Aspartate Amino Transferase 20 U/L (5-37); Bilirubin Total 0.6 mg/dL (0.0-1.0); Blood Urea Nitrogen 18 mg/dL (9-16); Calcium 9.7 mg/dL (8.4-10.2); Carbon Dioxide 29 mmol/L (22-29); Chloride 106 mmol/L (96-108); Creatinine Clr Calc Pharmacy 94.1; Estimated Glomerular Filt Rate > 60; Glucose Random 74 mg/dL (60-115); Sodium 141 mmol/L (135-145); Total Protein 6.9 g/dL (6.5-8.0)
[2024-04-07 17:49] LABS: Influenza A PCR NEGATIVE (Negative); Influenza B PCR NEGATIVE (Negative); Resp Syncy Virus RNA Qual PCR NEGATIVE (Negative); SARS COV2 PCR INHOUSE NEGATIVE (Negative)
[2024-04-07 23:00] VITALS: BP 120/70; PULSE 69; RESP 19; TEMP 36.4; O2SAT 100
--- NOTE | 2024-04-07 23:19 | ECG_ITS ---
Test Reason : ABDOMINAL PAIN Blood Pressure : / mmHG Vent. Rate : 065 BPM Atrial Rate : 065 BPM P-R Int : 148 ms QRS Dur : 108 ms QT Int : 404 ms P-R-T Axes : 054 014 022 degrees QTc Int : 420 ms Normal sinus rhythm Early Repolarization Abnormal ECG No previous ECGs available Referred By: Erasto Eden Electronically Signed By:WENDY REECE
[2024-04-07 23:26] LABS: Lipase 18 U/L (8-78)
[2024-04-07] MEDS: Lidocaine HCl Viscous 2 % 15 ML SOLUTION MUCOUS MEM (23:30)
[2024-04-07] MEDS: Magnesium Hydrox/Alum Hydrox 30 ML ORAL.SUSP PO (23:30)
[2024-04-07] MEDS: PHENobarb/Hyoscy/Atropine/Scop 10 ML ELIXIR PO (23:30)
[2024-04-07] MEDS: Famotidine 20 MG TABLET PO (23:30)
[2024-04-07 23:54] LABS: Troponin-I High Sensitivity < 2.7 ng/L (<3.5-35.0)
[2024-04-08 00:38] LABS: Appearance Urine Clear; Color Urine Yellow; Glucose Urine UA 250 mg/dL (Negative); Leukocyte Esterase Urine Negative (Negative); Nitrite Urine Negative (Negative); Specific Gravity - Urine 1.025 (1.005-1.025); UMIC TRIGGER UACC YES; Urine Blood Small (1+) (Negative); Urine Ketones Negative (Negative); Urine Protein Negative (Neg-Trace)
[2024-04-08 00:41] LABS: Bacteria Urine None Seen (None Seen); Hyaline Casts Urine 0-2 /LPF (0-2); Squamous Epithelial Cell Urine 0-2 /HPF (0-2); WBC Urine 0-5 /HPF (0-5)
[2024-04-08] MEDS: iohexoL 350 MG/ML 100 ML INFUS..BTL 85 ML IV (01:10)
[2024-04-08 02:37] VITALS: BP 113/80; PULSE 54; RESP 20; TEMP 36.8; O2SAT 98
== END 2024-04-08 02:41 | disposition home or self-care (01) ==
PROVIDERS: Physician Assistant; Physician Assistant Medical; Emergency Provider Emergency Medicine
DX: K21.9 Gastro-esophageal reflux disease without esophagitis (principal); N20.0 Calculus of kidney; K42.9 Umbilical hernia without obstruction or gangrene; R10.11 Right upper quadrant pain; R10.13 Epigastric pain
CPT/HCPCS: 0241U; 36415; 74177; 80053; 81001; 83690; 83735; 84484; 85025; 93005; 99284; 99285; Q9967

== ENCOUNTER 2024-05-05 13:58 | Emergency (ER) | payer BC, SELFPAY ==
[2024-05-05 14:19] VITALS: BP 96/56; PULSE 66; RESP 16; TEMP 36.9; O2SAT 100; BMI 25.1
--- NOTE | 2024-05-05 14:23 | ED_ITS ---
HPI - General Adult General Chief complaint: Abdominal Pain Stated complaint: Abd pain Time Seen by Provider: 05/05/24 21:22 Source: patient Mode of arrival: ambulatory Limitations: no limitations History of Present Illness ED Provider: samantha DANIEL narrative: Patient is 24 years old with increased anxiety with chronic upper abdominal pain been here [address] scan in the past was negative has seen single end sewer plan to have endoscopy next month on H2 areli sucralfate still complaining of upper abdominal specially nighttime lot of unable to sleep also the nighttime normal bowel movements Related Data Previous Rx's ?Medication ?Instructions ?Recorded meclizine 25 mg tablet 25 mg PO BID PRN dizziness #30 tabs 07/22/22 cyclobenzaprine 5 mg tablet 5 mg PO BEDTIME PRN muscle spasm 10/24/22 #4 tabs famotidine 20 mg tablet (Pepcid) 20 mg PO BID 7 days #14 tabs 04/08/24 naproxen 500 mg tablet 500 mg PO BID PRN pain 7 days #14 04/08/24 tabs dicyclomine 20 mg tablet 20 mg PO TID #20 tabs 05/05/24 lorazepam 1 mg tablet (Ativan) 1 mg PO BEDTIME PRN anxiety/sleep 05/05/24 #10 tabs Allergies Allergy/AdvReac Type Severity Reaction Status Date / Time No Known Allergies Allergy Verified 05/05/24 14:23 Review of Systems 2 Review of Systems: Yes all other systems are reviewed and are negative [facility] Social History Social History Advance Directives: No Advance Directives Information Provided: Yes Do you have a plan to hurt others: No Plan Physical Exam ED Vital Signs: Vital Signs - 24 hr 05/05/24 14:19 05/05/24 20:00 Temperature 98.5 F 98.1 F Pulse Rate 66 72 Respiratory Rate 16 20 Blood Pressure 96/56 L 104/68 Pulse Oximetry 100 100 Oxygen Delivery Method Room Air Room Air BMI result Body Mass Index 25.1 Appearance: Alert. Oriented X3. No acute distress. , anxious Eyes: No pallor or icterus ENT: Pharynx normal. Oral Mucosa moist Neck: Normal inspection. Neck supple. CVS: Normal heart rate and rhythm. Pulses normal. Respiratory: No respiratory distress. Equal air entry bilateral, no wheezing/rales/rhonchi Abdomen: Soft and tenderness in epigastric area Bowel sounds are present, no mass palpable, no CVA tenderness Skin: Skin warm and dry. Normal skin color. Normal skin turgor. Extremities: No lower extremity edema. No calf tenderness Neuro: Oriented X 3. Course Course Course Narrative: RME performed by Sloa Jones PA-C. Patient is a 34 year old assigned male at presenting to the emergency department with abdominal pain and nausea. Patient states over the last month he has had abdominal pain and nausea. Detailed physical exam and review of systems are deferred to the rehabilitation construction specialist. EKG, labs, and swabs ordered. Patient placed back in the waiting room pending room availability and results. Medical Decision Making Medical Decision Making [facility] Narrative: Patient clinically possible IBS with chronic gastritis increased anxiety will prescribe dicyclomine advised to continue H2 areli and follow with Gastro Lab Data [facility] Lab Attestation statement: I reviewed the patient's lab results. 05/05/24 15:03 05/05/24 15:03 Labs: Lab Results 05/05/24 Range/Units 15:03 WBC 5.6 (4.8-10.8) X10*3/uL RBC 4.90 (4.60-5.80) X10*6/uL Hgb 15.3 (14.0-18.0) g/dl Hct 43.3 (42.0-52.0) % MCV 88.4 (80.0-98.0) fL MCH 31.2 (27.0-33.0) pg MCHC 35.3 (31.0-36.0) g/dl RDW 11.9 (11.0-16.0) % Plt Count 188 (160-400) X10*3/uL MPV 9.4 (9.4-12.4) fL Immature Gran % (Auto) 0.2 (0.0-0.4) % Neut % (Auto) 40.3 L (45-73) % Lymph % (Auto) 47.3 H (20-40) % Cherry % (Auto) 9.0 (2-11) % Eos % (Auto) 2.7 (0-4) % Baso % (Auto) 0.5 (0-2) % Lymph # (Auto) 2.6 (1.2-4.9) X10*3/uL [place] # (Auto) 0.5 (0.1-1.2) X10*3/uL Eos # (Auto) 0.2 (0.0-0.4) X10*3/uL Baso # (Auto) 0.0 (0.0-0.2) X10*3/uL Abs Immat Gran (auto) 0.01 (0.00-0.03) X10*3/uL Absolute Neuts (auto) 2.2 (2.0-8.3) x10*3/uL Absolute Nucleated RBC 0.000 (0.0-0.012) X10*3/uL Nucleated RBC % (auto) 0.0 (0.0-0.2) /100WBC Sodium 142 (135-145) mmol/L Potassium 4.1 (3.3-5.1) mmol/L Chloride 105 (96-108) mmol/L Carbon Dioxide 30 H (22-29) mmol/L Anion Gap 11 L (12-20) BUN 10 (9-16) mg/dL Creatinine 1.02 (0.5-1.4) mg/dL Estim Creat Clear Calc 97.7 Estimated GFR > 60 Random Glucose 100 (60-115) mg/dL Calcium 9.7 (8.4-10.2) mg/dL Magnesium 1.9 (1.6-2.6) mg/dL Total Bilirubin 0.8 (0.0-1.0) mg/dL AST 22 (5-37) U/L ALT 21 (0-40) U/L Alkaline Phosphatase 50 (39-117) U/L Troponin I High Sens < 2.7 (<3.5-35.0) ng/L Total Protein 6.7 (6.5-8.0) g/dL Albumin 4.4 (3.5-5.0) g/dL Urine Color Yellow Urine Appearance Clear Urine pH 7.5 (5.0-9.0) Ur Specific [place] <= 1.005 (1.005-1.025) Urine Protein Negative (Neg-Trace) mg/dL Urine Glucose (UA) Negative (Negative) mg/dL Urine Ketones Negative (Negative) mg/dL Urine Blood Negative (Negative) Urine Nitrite Negative (Negative) Ur Leukocyte Esterase Negative (Negative) Influenza Type A (PCR) NEGATIVE (Negative) Influenza Type B (PCR) NEGATIVE (Negative) RSV RNA Qual (PCR) NEGATIVE (Negative) SARS-CoV-2 RNA (RT-PCR) NEGATIVE (Negative) Discharge Plan Discharge Clinical Impression: Chronic gastritis, Irritable bowel syndrome Patient Disposition: Home, Self-Care Instructions: Gastritis (ED), Irritable Bowel Syndrome (DC) Additional Instructions: Avoid Fried and spicy food Continue medication as prescribed by your single end sewer Dicyclomine for severe pain as prescribed Follow up with the single end sewer Prescriptions: New dicyclomine 20 mg tablet 20 mg PO TID Qty: 20 0RF lorazepam [Ativan] 1 mg tablet 1 mg PO BEDTIME PRN (Reason: anxiety/sleep) Qty: 10 0RF No Action meclizine 25 mg tablet 25 mg PO BID PRN (Reason: dizziness) Qty: 30 0RF famotidine [Pepcid] 20 mg tablet 20 mg PO BID 7 Days Qty: 14 0RF naproxen 500 mg tablet 500 mg PO BID PRN (Reason: pain) 7 Days Qty: 14 0RF cyclobenzaprine 5 mg tablet 5 mg PO BEDTIME PRN (Reason: muscle spasm) Qty: 4 0RF Stand Alone Forms: Work/School Release Print Language: Divehi
--- NOTE | 2024-05-05 14:24 | ECG_ITS ---
Test Reason : epigastric pain Blood Pressure : / mmHG Vent. Rate : 060 BPM Atrial Rate : 060 BPM P-R Int : 142 ms QRS Dur : 112 ms QT Int : 422 ms P-R-T Axes : 059 008 046 degrees QTc Int : 422 ms Normal sinus rhythm Normal ECG When compared with ECG of 07-APR-2024 23:38, No significant change was found Referred By: Sola Jones Electronically Signed By:Mele Sandoval
[2024-05-05 15:09] LABS: MANUAL DIFF FLAG NO
[2024-05-05 15:12] LABS: Appearance Urine Clear; Basophils Percent Auto 0.5 % (0-2); Color Urine Yellow; Eosinophils Absolute Auto 0.2 X10*3/uL (0.0-0.4); Eosinophils Percent Auto 2.7 % (0-4); Glucose Urine UA Negative (Negative); Hematocrit 43.3 % (42.0-52.0); Hemoglobin 15.3 g/dl (14.0-18.0); Imm Gran Abs Auto 0.01 X10*3/uL (0.00-0.03); Imm Gran Pct Auto 0.2 % (0.0-0.4); Leukocyte Esterase Urine Negative (Negative); Lymphocytes Absolute Auto 2.6 X10*3/uL (1.2-4.9); Lymphocytes Percent Auto 47.3 % (20-40); Mean Corpuscular HGB Conc 35.3 g/dl (31.0-36.0); Mean Corpuscular Hemoglobin 31.2 pg (27.0-33.0); Mean Corpuscular Volume 88.4 fL (80.0-98.0); Mean Platelet Volume 9.4 fL (9.4-12.4); Monocytes Absolute Auto 0.5 X10*3/uL (0.1-1.2); Neutrophils Absolute Auto 2.2 x10*3/uL (2.0-8.3); Neutrophils Percent Auto 40.3 % (45-73); Nitrite Urine Negative (Negative); PH 7.5 (5.0-9.0); Platelet Count 188 X10*3/uL (160-400); Red Cell Distribution Width 11.9 % (11.0-16.0); Specific Gravity - Urine <= 1.005 (1.005-1.025); Urine Blood Negative (Negative); Urine Ketones Negative (Negative); Urine Protein Negative (Neg-Trace); White Blood Count 5.6 X10*3/uL (4.8-10.8)
[2024-05-05 15:46] LABS: Alanine Aminotransferase 21 U/L (0-40); Albumin Level 4.4 g/dL (3.5-5.0); Alkaline Phosphatase 50 U/L (39-117); Anion Gap 11 (12-20); Aspartate Amino Transferase 22 U/L (5-37); Bilirubin Total 0.8 mg/dL (0.0-1.0); Blood Urea Nitrogen 10 mg/dL (9-16); Calcium 9.7 mg/dL (8.4-10.2); Carbon Dioxide 30 mmol/L (22-29); Chloride 105 mmol/L (96-108); Creatinine Clr Calc Pharmacy 97.7; Estimated Glomerular Filt Rate > 60; Glucose Random 100 mg/dL (60-115); Influenza A PCR NEGATIVE (Negative); Influenza B PCR NEGATIVE (Negative); Magnesium 1.9 mg/dL (1.6-2.6); Potassium 4.1 mmol/L (3.3-5.1); Resp Syncy Virus RNA Qual PCR NEGATIVE (Negative); SARS COV2 PCR INHOUSE NEGATIVE (Negative); Sodium 142 mmol/L (135-145); Total Protein 6.7 g/dL (6.5-8.0)
[2024-05-05 15:56] LABS: Troponin-I High Sensitivity < 2.7 ng/L (<3.5-35.0)
[2024-05-05 20:00] VITALS: BP 104/68; PULSE 72; RESP 20; TEMP 36.7; O2SAT 100
[2024-05-05] MEDS: Dicyclomine HCl 10 MG CAPSULE 20 MG PO (22:02)
[2024-05-05] MEDS: Magnesium Hydrox/Alum Hydrox 30 ML ORAL.SUSP PO (22:03)
[2024-05-05] MEDS: LORazepam 1 MG TABLET PO (22:03)
[2024-05-05 22:15] VITALS: BP 104/68; PULSE 72; RESP 20; TEMP 36.7; O2SAT 100
== END 2024-05-05 22:15 | disposition home or self-care (01) ==
PROVIDERS: Physician Assistant Medical; Emergency Provider Internal Medicine
DX: K29.70 Gastritis, unspecified, without bleeding (principal); K58.9 Irritable bowel syndrome, unspecified; R10.13 Epigastric pain; R10.10 Upper abdominal pain, unspecified; R11.0 Nausea; Z03.818 Encounter for observation for suspected exposure to other biological agents ruled out; Z79.899 Other long term (current) drug therapy
CPT/HCPCS: 0241U; 80053; 81003; 83735; 84484; 85025; 93005; 99283; 99284

== ENCOUNTER → 2024-05-05 14:24 | Outpatient (BNV) | payer BC, SELFPAY | PROVIDERS: Emergency Provider Internal Medicine; Visit Provider Internal Medicine Cardiovascular Disease | DX: R10.13 Epigastric pain (principal) | CPT/HCPCS: 93010 ==

== ENCOUNTER 2024-07-14 08:55 | Outpatient (AMB) | payer BC, SELFPAY ==
--- NOTE | 2024-07-14 09:36 | A.OFFVIS_ITS ---
Intake Visit Reasons: nephrolithiasis Intake Note: New Patient presents for initial visit for nephrolithiasis Urology Medications: none Blood Thinner: none Director Presales Required: No Accompanied by: Self / Same As Patient Allergies No Known Allergies Allergy (Verified 07/14/24 10:28) HPI Comments Details: Dominic is a pleasant 34-year-old male patient. He has a past medical history of chronic GI issues and nephrolithiasis. He presents to the office today as a new patient for nephrolithiasis. In discussion with the patient today he reports having seeked emergency room care approximately 3 months ago as he had been experiencing abdominal pain and was unsure if this was related to his chronic GI issues or nephrolithiasis. In review of patient's chart it appears CT of the abdomen was ordered and performed. These results were reviewed with the patient today. 04/08 bilateral kidneys are normal in size, shape, and attenuation. There is a 5 mm nonobstructing calculus mid pole left kidney. There is a 1.2 cm cyst mid to lower pole of the left kidney. There is no hydronephrosis. The bladder is unremarkable. When asked he does report a longstanding history of nephrolithiasis over the last 10 years however never requiring surgical intervention. He does report only be drinking 20-30 oz water daily. He reports at times he experiences left-sided flank pain however feels it is not frequent. We discussed further intervention to include ESWL verses surveillance monitoring. We discussed at length potential causes of renal cysts as well as nephrolithiasis. He otherwise denies any bothersome urinary issues. He denies urinary urgency, urinary frequency, incontinence, nocturia, hematuria, dysuria, foul smelling urine, changes to urinary stream, flank pain, fever, and or chills. He is happy with his current voiding parameters. He discusses [place] and underwent renal ultrasound that noted nephrolithiasis and believes it was bigger than what was noted on previous imaging in March. We discussed variation in stone sizing with different imaging. We discussed importance of adequate hydration relation to nephrolithiasis as well as overall health and well-being. He otherwise offers no other issues or concerns at this time. Review of Systems Const All systems reviewed & are unremarkable except as noted in HPI and below Physical Exam Const General: cooperative, healthy appearing, comfortable, no acute distress, well developed, alert and awake Orientation/consciousness: patient oriented x3 Limitations: no limitations HEENT Head: Yes normal to inspection, Yes normocephalic and Yes atraumatic Ears: hearing grossly normal bilaterally Eyes General: appearance normal, both eyes and all related structures Neck Neck: Yes normal visual inspection and Yes trachea midline Chest Chest palpation & inspection: normal inspection of the chest Resp Effort & Inspection: normal respiratory effort and able to speak in complete sentences Cardio Rate: regular rate GI Inspection: Yes normal to inspection General: Yes no CVA tenderness Back/Spine/Pelvis Back: no CVA tenderness Skin General skin exam: no rashes or lesions noted Neuro General: patient oriented x3 Extrem General: Yes normal to inspection Psych Appearance: grossly normal and well kempt Mental Status: mental status grossly normal Speech and movement: Normal speech and movement present and Clear speech present Affect: normal affect Attitude: cooperative Thought process: Normal thought process present Thought content: Normal thought content present Insight: Fair insight present (Psych) Judgement: Fair judgement present (Psych) Results AMB Urinalysis, Automated UA Leukoctes 0 Chip/uL Last Edit by [email or web address] Rissa on 07/14/24 10:30 UA Nitrite Last Edit by [employer] Kwok on 07/14/24 10:30 UA Urobilinogen 0.2 mg/dL Last Edit by [employer] Kwok on 07/14/24 10:30 UA Protein 0 mg/dL Last Edit by Stuffle on 07/14/24 10:30 UA pH 6.0 Last Edit by [email or web address] Rissa on 07/14/24 10:30 UA Blood 0 Olman/uL Last Edit by Ek[employer] Kwok on 07/14/24 10:30 UA Specific Alpha 1.025 Last Edit by [employer] Kwok on 07/14/24 10:30 UA Ketone Last Edit by Ek[employer] Kwok on 07/14/24 10:30 UA Bilirubin 0 mg/dL Last Edit by Colette Kwok on 07/14/24 10:30 UA Glucose 0 mg/dL Last Edit by Colette Kwok on 07/14/24 10:30 Results Reviewed Results Reviewed: Laboratory Last Values Urine pH (Auto) 6.0 07/14/24 10:29 Specific Alpha (Auto) 1.025 07/14/24 10:29 Urine Protein (Auto) 0 mg/dL 07/14/24 10:29 Glucose (UA)(Auto) 0 mg/dL 07/14/24 10:29 Urine Blood (Auto) 0 Olman/uL 07/14/24 10:29 Urine Bilirubin (Auto) 0 mg/dL 07/14/24 10:29 Urine Urobilinogen (Auto) 0.2 mg/dL 07/14/24 10:29 Leukocyte Esterase (Auto) 0 Chip/uL 07/14/24 10: Date of Service: 04/08/24 EXAMINATION: CT ABDOMEN AND PELVIS WITH CONTRAST FINDINGS: LUNG BASES: The visualized lung bases are unremarkable. LIVER, GALLBLADDER, AND BILIARY TREE: The liver is normal in size, shape, and attenuation. No focal hepatic lesion or biliary ductal dilatation is present. The gallbladder is unremarkable with no evidence of radiopaque gallstones, gallbladder wall thickening, or obvious pericholecystic inflammatory changes. PANCREAS: Unremarkable. SPLEEN: Unremarkable. ADRENAL GLANDS: Unremarkable. KIDNEYS AND URETERS: The kidneys are normal in size, shape, and attenuation. There is a 5 mm nonobstructing calculus mid pole left kidney. There is a 1.2 cm cyst mid to lower pole left kidney. There is no hydronephrosis. BLADDER: Unremarkable. GASTROINTESTINAL TRACT: The small and large bowel are unremarkable. The appendix is unremarkable. ABDOMINAL WALL: There is a small umbilical hernia containing fat. LYMPH NODES: Normal. VASCULAR: Unremarkable. PELVIC VISCERA: Unremarkable. OSSEOUS STRUCTURES: Unremarkable. IMPRESSION: 5 mm nonobstructing left renal calculus. Small left renal cyst. Small umbilical hernia containing fat. No acute intra-abdominal process. Assessment & Plan Assessment & Plan (1) Renal cyst: Code(s): N28.1 - Cyst of kidney, acquired Category: Medical (2) Calculus, renal: Code(s): N20.0 - Calculus of kidney Category: Medical Plan In office urinalysis results reviewed with the patient today; as noted above. Recent CT results reviewed with the patient today; as noted above. We discussed at length potential causes of nephrolithiasis as well as renal cysts. Patient currently denies any bothersome urinary issues. He reports be happy with current voiding parameters. Discussed, educated, and stressed the importance of adequate hydration relation to nephrolithiasis as well as overall health and well-being. Will obtain renal ultrasound as well as KUB for further assessment evaluation. We discussed further intervention to include ESWL versus surveillance monitoring; risks and benefits of these interventions were discussed. We discussed possible near future metabolic workup. Follow-up in 3 months with imaging to be completed prior; or sooner with any issues, concerns, and or questions. Orders: Orders US renal BI 2 Months N20.0 - Calculus of kidney XR KUB 3 Months N20.0 - Calculus of kidney AMB Urinalysis Automated Today Z13.9 - Encounter for screening, unspecified Medications: Discontinued meclizine Discontinued Reason: Patient no longer taking 25 mg PO BID PRN 30 tabs 0RF dizziness famotidine (Pepcid) Discontinued Reason: Patient no longer taking 20 mg PO BID 7 days 14 tabs 0RF dicyclomine Discontinued Reason: Patient no longer taking 20 mg PO TID 20 tabs 0RF cyclobenzaprine Discontinued Reason: Patient no longer taking 5 mg PO BEDTIME PRN 4 tabs 0RF muscle spasm naproxen Discontinued Reason: Patient no longer taking 500 mg PO BID 7 days PRN 14 tabs 0RF pain lorazepam (Ativan) Discontinued Reason: Patient no longer taking 1 mg PO BEDTIME PRN 10 tabs 0RF anxiety/sleep Patient Instructions: The patient had an opportunity to ask questions regarding the treatment plan. All questions were answered. Physical exam, labs, and imaging were discussed and reviewed in detail. As well as risks, benefits, and discussion of treatment choices. No major barriers to understanding were identified. The patient expressed understanding and agreement with the above treatment plan. The patient was made aware they should contact our office by phone for worsening of their current condition, the appearance of new symptoms, or with any questions or concerns. Compliance is encouraged with any medications and follow up testing that is ordered. It is a privilege to be allowed the opportunity to participate in? your urological care.? Again, if you have any questions or concerns If you have any questions or concerns please do not hesitate to contact me. The office is [phone]. This note is constructed using voice recognition software. While every effort has been made to ensure accuracy accounts receivable assistant errors may have been included. Yours sincerely, BRII Lazaro-KENNEDI Coding Level of Care Code New Pt Level 3 (61963) Diagnoses Renal cyst N28.1 Calculus, renal N20.0
== END 2024-07-14 10:07 | disposition home or self-care (01) ==
PROVIDERS: Visit Provider Nurse Practitioner Family
DX: N28.1 Cyst of kidney, acquired (principal); N20.0 Calculus of kidney; Z13.9 Encounter for screening, unspecified
CPT/HCPCS: 99203

== ENCOUNTER → 2024-07-14 08:55 | Outpatient (BNVA) | payer BC, SELFPAY | PROVIDERS: Visit Provider Nurse Practitioner Family | DX: N20.0 Calculus of kidney (principal); N28.1 Cyst of kidney, acquired | CPT/HCPCS: 81003 ==

== ENCOUNTER 2024-09-08 13:54 | Outpatient (REF) | payer BC, SELFPAY ==
--- NOTE | ~2024-09-08 | XR_ITS ---
EXAMINATION: XR ABDOMEN KUB CLINICAL INDICATION: N20.0 - Calculus of kidney COMPARISON: Calculus of kidney. TECHNIQUE: AP view of the abdomen. FINDINGS: Focal, 4 mm calcification overlapping the left kidney shadow. Focal consolidations in the lower pelvis likely phlebolith. No intestinal obstruction pattern. Osseous structures are intact. XR/XR KUB IMPRESSION: Probable nephrolithiasis left kidney. Electronically signed by: Emir Sierra MD 09/09/2024 02:52 PM [facility]
--- NOTE | ~2024-09-08 | US_ITS ---
CLINICAL HISTORY: N20.0 - Calculus of kidney US renal with Color Doppler Comparison: None Findings: Right kidney normal size and echotexture, 10.2 cm length. No hydronephrosis calculus or mass. Normal color flow. Left kidney normal size and echotexture, 10.9 cm length. No hydronephrosis Normal color flow. Renal cortical cyst midpole measuring 12 x 10 x 11 mm with an equivocal mural nodular component and with an adjacent 3 x 4 x 4 mm calculus. Nonobstructing caliceal stone midpole measuring 8 x 6 x 6 mm . Impression: 1. Midpole cyst on the left with a equivocal mural nodular component correlate with CT or MRI with and without contrast renal protocol study. Nephrolithiasis on the left. No evidence of obstructive uropathy This document has been electronically signed by: Callum Khoury MD on 09/09/2024 10:37:56
--- OUTSIDE RECORDS SUMMARY | 2024-09-08 16:00 | XMS_ITS | Clinical Summary ---
Author Organization [facility] Address [address] [place] [address] Care Team Providers Care Stitch Bonding Machine Tender Name Role Phone Dominique Khoury PA-C Primary Care Provider Source Comments PLEASE NOTE, if this patient is a minor, it may be UNLAWFUL to discuss sensitive information that is contained in these records (such as FAMILY PLANNING, MENTAL HEALTH or SUBSTANCE ABUSE) with the minor patient's parent or other person without the patient's specific authorization.[facility] Allergies No known active allergies Medications acetaminophen (TYLENOL) 500 mg tabletIndicatio ns:Aching headache Take 1 Tablet by mouth every 6 (six) hours as needed for pain 120 Tablet 08/25/2022 Active methocarbamoL (ROBAXIN) 750 mg tabletIndicatio ns:Aching headache Take 1 Tablet by mouth nightly at bedtime as needed (headache) 30 Tablet 1 09/18/2022 Active hydrOXYzine HCL (ATARAX) 25 mg tabletIndicatio ns:Anxiety TAKE 1 TABLET BY MOUTH NIGHTLY AT BEDTIME NEEDED FOR ANXIETY OR SLEEP 90 Tablet 1 09/04/2023 Active Active Problems No known active problems Resolved Problems Problem Noted Date Diagnosed Date Resolved Date Suspected COVID-19 virus infection 11/22/2019 08/02/2022 Overview (11/22/2019): COVID-19 Tracking [reviewed or updated 11/22/2019] ? ? Exposure to confirmed case or travel risk - No ? ? Date that symptoms began - N/A ? ? Patient risk factors for severe COVID-19: None ? ? Healthcare worker or career and guidance counselor? No ? ? COVID-19 Tested? - No ? ? Is patient ? No Helicobacter pylori (H. pylori) infection 05/12/2014 08/02/2022 Social History Tobacco Use Types Packs/Day Years Used Date Smoking Tobacco: Never Smokeless Tobacco: Never Tobacco Cessation:Counseling Given: Yes Alcohol Use Standard Drinks/Week Comments No 0 (1 standard drink = 0.6 oz pur e alcohol) Social Connections Answer Date Recorded Connectedness 0 04/02/2024 Financial Resource Strain Answer Date R ecorded Financial Resource Strain 0 2018 Stress Answer Date Recorded Stress 0 03/08/2019 Physical Activity Answer Date Recorded Physical Activity 0 03/08/2019 Food Insecurity Answer Date Recorded Food 0 04/10/2024 Transportation Needs Answer Date Record ed Transportation 0 03/08/2019 Housing Stability Answer Date Recorded Housing 0 03/08/2019 Safety and Environment Answer Date Twan rded Safety 0 03/08/2019 Utilities Answer Date Recorded Utilities 0 03/08/2019 Employment Answer Date Recorded Stress 0 04/02/2024 Sex and Gender Information Value Date Recorded Sex Assigned at Male 04/28/2017 11:04 AM PDT Legal Sex Male 11:36 AM PDT Gender Identity Male 04/28/2017 11:04 AM PDT Sexual Orientation Straight 04/28/2017 11 :04 AM PDT Last Filed Vital Signs Vital Sign Reading Time Taken Comments Blood Pressure 116/76 08/25/2022 4:14 PM EST Pulse 96 08/25/2022 4:14 PM EST Temperature 36.9 ??C (98.4 ??F) 08/25/2022 4:14 PM ES T Respiratory Rate 16 09/13/2018 2:02 PM EST Oxygen Saturation 95% 08/25/2022 4:14 PM EST Inhaled Oxygen Concentration - - Weight 82.1 kg (180 lb 14.4 oz) 08/25/2022 4:14 PM EST Height 172.7 cm (5' 8 ) 09/13/2018 2:02 PM EST Body Mass Index 27.51 09/13/2018 2:02 PM EST Plan of Treatment Health Maintenance Due Date Last Done Comments Tobacco Screening 1989 HIV Screening 01/16/2004 Annual Preventive Care Visit 2007 Imm-Hepatitis B (1 of 3 - 19 + 3-dose series) 01/16/2008 [id number] (2023- season) 2024 Diabetes Screening 08/02/2025 08/02/2022, 0 08/02/2022, 09/24/2017, Additional history exists Hypertension Screening (#1) 08/24/2025 Hepatitis C Screening Completed 06/11/2013 Alcohol and Drug Screen Discontinued Depression Annual Screen Discontinued Imm-DTaP/Tdap/Td Discontinued Imm-Influenza Discontinued Procedures Procedure Name Priority Date/Time Associated Diagnosis Comments COMPREHENSIVE METABOLIC PANEL Routine 08/02/2022 9:34 AM EST Chronic LUQ pain HEPATITIS A,B,C PANEL Routine 06/11/2013 10:16 AM EST Sinusitis from Last 3 Months or Most Recently Relevant to Health Maintenance Results * (ABNORMAL) COMPREHENSIVE METABOLIC PANEL (08/02/2022 9:34 AM EST) GLUCOSE 86 65 - 99 mg/dL [facility] Comment: ?Fasting reference interval UREA NITROGEN (BUN) 16 7 - 25 mg/dL [email or web address] CREATININE (blood) 1.03 0.60 - 1.26 mg/dL [facility] EGFR 98 > OR = 60 mL/min/[address] [facility] Comment: The eGFR is based on the CKD-EPI 2020 equation. To calculate the new eGFR from a previous Creatinine or Cystatin C result, go to https://www.kidney.org/professionals/ kdoqi/gfr%5Fcalculator BUN/CREATININE RATIO NOT APPLICABLE 6 - [address] [facility] SODIUM 138 135 - 146 mmol/L [email or web address] POTASSIUM 4.1 3.5 - 5.3 mmol/L [email or web address] CHLORIDE 101 98 - 110 mmol/L [email or web address] CARBON DIOXIDE 33(H) 20 - 32 mmol/L [email or web address] CALCIUM 9.7 8.6 - 10.3 mg/dL [email or web address] PROTEIN, TOTAL 6.6 6.1 - 8.1 g/dL [email or web address] ALBUMIN 4.3 3.6 - 5.1 g/dL [facility] GLOBULIN 2.3 1.9 - 3.7 g/dL (calc) [facility] ALBUMIN/GLOBUL IN RATIO 1.9 1.0 - 2.5 (calc) [facility] BILIRUBIN, TOTAL 0.7 0.2 - 1.2 mg/dL [facility] ALKALINE PHOSPHATASE 60 36 - 130 U/L [facility] AST 13 10 - 40 U/L [facility] ALT 21 9 - 46 U/L [facility] Blood Blood / Unknown 08/02/2022 9 :34 AM EST 08/02/2022 9:35 AM EST Rina To NP LAB - BLOOD DRAW Edited Result - Final Performing Organization Address City/[facility]/ZIP Co de Phone Number [facility] [address] [address], [facility] [address]) [place] [address] * (ABNORMAL) HEPATITIS A,B,C PANEL (06/11/2013 10:16 AM EST) HEPATITIS B SURFACE ANTIBODY NEGATIVE NEGATIVE [facility] HEPATITIS B SURFACE ANTIGEN NEGATIVE NEGATIVE [facility] HEPATITIS C VIRUS ANTIBODY NEGATIVE NEGATIVE [facility] HEPATITIS A ANTIBODY TOTAL POSITIVE(A) NEGATIVE [facility] HEPATITIS B CORE ANTIBODY NEGATIVE NEGATIVE [facility] Blood specimen (specimen) Blood / Unknown 06/11/2013 10:16 AM EST 06/11/2013 10:19 AM EST Narrative [facility] - 06/11/2013 1:42 PM EST [facility] [address] [place] [address] [place] [id number] ORD# [id number] Dominique Khoury PA-C LAB - BLOOD DRAW Edited Performing Organization Address City/[facility]/ZIP Co de Phone Number [facility] [address] [place] [address], from Last 3 Months or Most Recently Relevant to Health Maintenance Insurance [employer] Member Subscriber Plan / Payer ( fective 2019-Present) Name:Dominic Barragan Relation to Subscriber:Self Name:Dominic Barragan Payer ID:[id number] Type:[employer] Address: [address] [place] [address] Care Teams Stitch Bonding Machine Tender Relationship Specialty Start Date End Date Dominique Khoury PA-C [address] [place] [address] PCP - General 07/03/13
== END 2024-09-08 13:55 | disposition home or self-care (01) ==
LOC: HO.US 13:54
PROVIDERS: Visit Provider Nurse Practitioner Family
DX: N20.0 Calculus of kidney (principal)
CPT/HCPCS: 74018; 76775

== ENCOUNTER → 2024-09-08 13:56 | Outpatient (BNV) | payer BC, SELFPAY | PROVIDERS: Visit Provider Radiology Diagnostic Radiology | DX: N20.0 Calculus of kidney (principal); N28.1 Cyst of kidney, acquired | CPT/HCPCS: 74018; 76775 ==

== ENCOUNTER 2024-10-13 16:03 | Outpatient (AMB) | payer BC, SELFPAY ==
--- NOTE | 2024-10-13 16:08 | A.OFFVIS_ITS ---
Intake Visit Reasons: 3m/US/KUB(set) Intake Note: Patient presents today for follow up on: visit for nephrolithiasis Urology Medications: none Blood Thinner: none Participant Administrator Required: No Accompanied by: Self / Same As Patient Allergies No Known Allergies Allergy (Verified 10/13/24 16:21) Medication List - Last Reconciled 10/13/24 by GARRY Lazaro omeprazole 40 mg PO DAILY HPI Comments Details: Dominic is a pleasant 34-year-old male patient. He has a past medical history of chronic GI issues and nephrolithiasis. He presents to the office today For follow-up of his nephrolithiasis. In discussion with the patient today reports to be doing and feeling well. He denies having had any bothersome urinary issues or concerns since his last office visit here which was approximately 3 months ago. Recent renal ultrasound and KUB results reviewed with the patient today. 09/09 renal ultrasound notes mid pole cyst which was also present on previous CT noting 1.2 cm cyst in the mid to lower pole of the left kidney bilateral kidneys with no hydronephrosis. Nonobstructing calyces stone in the left pole measuring 6 mm. KUB notes 4 mm calcification overlapping the left kidney probable nephrolithiasis. We discussed potential causes of nephrolithiasis as well as renal cysts. patient discusses his longstanding history of nephrolithiasis however never requiring surgical intervention. 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 He denies urinary urgency, urinary frequency, incontinence, nocturia, hematuria, dysuria, foul smelling urine, changes to urinary stream, flank pain, fever, and or chills. He is happy with his current voiding parameters. We discussed importance of adequate hydration relation to nephrolithiasis as well as overall health and well-being. He otherwise offers no other issues or concerns at this time. Plan The current management strategy for the patient's nephrolithiasis involves conservative treatment due to the stones' small size. Regular monitoring will continue, with a focus on increasing fluid intake. The renal cyst remains under observation, with imaging only revealing past stability. Lifestyle adjustments are suggested to ensure adequate hydration during the day. If any new symptoms develop, the patient is advised to contact the office. Further evaluations will be considered if imaging results change. Patient was informed and verbally consented to the use of an ambient scribe for clinic note documentation during this visit. Discussion Notes I discussed with the patient the diagnosis of nephrolithiasis and the current approach of conservative management due to the small size of the stone. The benefits of increased fluid intake for preventing stone formation and aiding passage were emphasized, with instructions on daily water consumption and added supplements like vitamin B6 and lemon juice. We addressed maintaining adequate hydration despite work-related challenges and strategies to integrate this into his daily routine. The unchanged renal cyst was noted, with reassurance given regarding its benign nature as observed in imaging. I reinforced the need for ongoing surveillance and outlined the protocol for contacting the office if any symptoms arise. The patient acknowledged understanding these recommendations and consented to the proposed plan. Review of Systems Const All systems reviewed & are unremarkable except as noted in HPI and below Physical Exam Const General: cooperative, healthy appearing, comfortable, no acute distress, well developed, alert and awake Orientation/consciousness: patient oriented x3 Limitations: no limitations HEENT Head: Yes normal to inspection, Yes normocephalic and Yes atraumatic Ears: hearing grossly normal bilaterally Eyes General: appearance normal, both eyes and all related structures Neck Neck: Yes normal visual inspection and Yes trachea midline Chest Chest palpation & inspection: normal inspection of the chest Resp Effort & Inspection: normal respiratory effort and able to speak in complete sentences Cardio Rate: regular rate GI Inspection: Yes normal to inspection General: Yes no CVA tenderness Back/Spine/Pelvis Back: no CVA tenderness Skin General skin exam: no rashes or lesions noted Neuro General: patient oriented x3 Extrem General: Yes normal to inspection Psych Appearance: grossly normal and well kempt Mental Status: mental status grossly normal Speech and movement: Normal speech and movement present and Clear speech present Affect: normal affect Attitude: cooperative Thought process: Normal thought process present Thought content: Normal thought content present Insight: Fair insight present (Psych) Judgement: Fair judgement present (Psych) Results AMB Urinalysis, Automated UA Leukoctes 0 Chip/uL Last Edit by Colette Kwok on 10/13/24 16:31 UA Nitrite Last Edit by [employer] on 10/13/24 16:31 UA Urobilinogen 0.2 mg/dL Last Edit by [employer] on 10/13/24 16:31 UA Protein 15 mg/dL Last Edit by [employer] on 10/13/24 16:31 UA pH 6.0 Last Edit by [employer] on 10/13/24 16:31 UA Blood 0 Olman/uL Last Edit by [employer] on 10/13/24 16:31 UA Specific [place]sonia 1.025 Last Edit by [employer] on 10/13/24 16: UA Ketone Last Edit by [employer] on 10/13/24 16:31 UA Bilirubin 0 mg/dL Last Edit by [employer] on 10/13/24 16: UA Glucose 0 mg/dL Last Edit by [employer] on 10/13/24 16:31 Results Reviewed Results Reviewed: Date of Service: 09/08/24 Procedure(s): US renal BI Findings: Right kidney normal size and echotexture, 10.2 cm length. No hydronephrosis calculus or mass. Normal color flow. Left kidney normal size and echotexture, 10.9 cm length. No hydronephrosis Normal color flow. Renal cortical cyst midpole measuring 12 x 10 x 11 mm with an equivocal mural nodular component and with an adjacent 3 x 4 x 4 mm calculus. Nonobstructing caliceal stone midpole measuring 8 x 6 x 6 mm Impression: 1. Midpole cyst on the left with a equivocal mural nodular component correlate with CT or MRI with and without contrast renal protocol study. Nephrolithiasis on the left. No evidence of obstructive uropathy --------- Date of Service: 09/08/24 EXAMINATION: XR ABDOMEN KUB FINDINGS: Focal, 4 mm calcification overlapping the left kidney shadow. Focal consolidations in the lower pelvis likely phlebolith. No intestinal obstruction pattern. Osseous structures are intact. IMPRESSION: Probable nephrolithiasis left kidney. Assessment & Plan Assessment & Plan (1) Renal cyst: Code(s): N28.1 - Cyst of kidney, acquired Category: Medical (2) Calculus, renal: Code(s): N20.0 - Calculus of kidney Category: Medical Plan In office urinalysis results reviewed with the patient today; as noted above. Recent KUB results reviewed with the patient today; as noted above. Recent renal imaging results reviewed with the patient today; as noted above. Patient currently denies any bothersome urinary issues or concerns. He reports be happy with current voiding parameters. Discussed, educated, and stressed the importance of adequate hydration relation to nephrolithiasis as well as overall health and well-being. Discussed adding 1 oz of lemon juice to water daily. Will continue with surveillance monitoring at this time. Will obtain renal ultrasound in 6 months. Follow-up in 6 months with imaging to be completed prior; or sooner with any issues, concerns, and or questions. Orders: Orders US renal BI 6 Months N20.0 - Calculus of kidney AMB Urinalysis Automated Today Z13.9 - Encounter for screening, unspecified Patient Instructions: The patient had an opportunity to ask questions regarding the treatment plan. All questions were answered. Physical exam, labs, and imaging were discussed and reviewed in detail. As well as risks, benefits, and discussion of treatment choices. No major barriers to understanding were identified. The patient expressed understanding and agreement with the above treatment plan. The patient was made aware they should contact our office by phone for worsening of their current condition, the appearance of new symptoms, or with any questions or concerns. Compliance is encouraged with any medications and follow up testing that is ordered. It is a privilege to be allowed the opportunity to participate in? your urological care.? Again, if you have any questions or concerns If you have any questions or concerns please do not hesitate to contact me. The office is [phone]. This note is constructed using voice recognition software. While every effort has been made to ensure accuracy elementary education tutor errors may have been included. Yours sincerely, GARRY Lazaro Coding Level of Care Code Est Pt Level 3 (71967) Diagnoses Renal cyst N28.1 Calculus, renal N20.0
--- OUTSIDE RECORDS SUMMARY | 2024-10-13 17:49 | XMS_ITS | Clinical Summary ---
Author Organization [facility] Address [address] [place] [address] Care Team Providers Care Cake Decorator Name Role Phone Dominique Khoury PA-C Primary Care Provider [phone] Source Comments PLEASE NOTE, if this patient [...] COVID-19: None ? ? Healthcare worker or regulatory scientist? No ? ? COVID-19 Tested? - No [...] Health Maintenance Due Date Last Done Comments Anxiety Screening 1989 Tobacco Screening 1989 HIV Screening 01/16/2004 Imm-Hepatitis B (1 of 3 - 19 + 3-dose series) 01/16/2008 [id number] (2023- season) 2024 Diabetes Screening 08/02/2025 08/02/2022, [...] EST) GLUCOSE 86 65 - 99 mg/dL [facility] Comment: ?Fasting reference interval UREA NITROGEN (BUN) 16 7 - 25 mg/dL [facility] CREATININE (blood) 1.03 0.60 - 1.26 mg/dL [facility] EGFR 98 > OR = 60 mL/min/1 .73m2 [facility] Comment: The eGFR is based on the CKD-EPI 2020 equation. To calculate the new eGFR from a previous Creatinine or Cystatin C result, go to https://www.kidney.org/professionals/ kdoqi/gfr%5Fcalculator BUN/CREATININE RATIO NOT APPLICABLE 6 - 22 [facility] SODIUM 138 135 - 146 mmol/L [facility] POTASSIUM 4.1 3.5 - 5.3 mmol/L [facility] CHLORIDE 101 98 - 110 mmol/L [facility] CARBON DIOXIDE 33(H) 20 - 32 mmol/L [facility] CALCIUM 9.7 8.6 - 10.3 mg/dL [facility] PROTEIN, TOTAL 6.6 6.1 - 8.1 g/dL [facility] ALBUMIN 4.3 3.6 - 5.1 g/dL [facility] GLOBULIN 2.3 1.9 - 3.7 g/dL (calc) [email or web address] ALBUMIN/GLOBUL IN RATIO 1.9 1.0 - 2.5 (calc) [email or web address] [facility] BILIRUBIN, TOTAL 0.7 0.2 - 1.2 mg/dL [facility] [employer] [facility] ALKALINE PHOSPHATASE 60 36 - 130 U/L [facility] AST 13 10 - 40 U/L [email or web address] [facility] ALT 21 9 - 46 U/L [email or web address] Blood Blood / Unknown 08/02/2022 9 :34 AM EST 08/02/2022 9:35 AM EST Rina To NP LAB - BLOOD DRAW Edited Result - Final Performing Organization Address City/[facility]/ZIP Co de Phone Number [email or web address] [facility] [address] [address], [email or web address] [address]) [place] [address] * (ABNORMAL) HEPATITIS A,B,C PANEL (06/11/2013 10:16 AM EST) HEPATITIS B SURFACE ANTIBODY NEGATIVE NEGATIVE [facility] HEPATITIS B SURFACE ANTIGEN NEGATIVE NEGATIVE [facility] HEPATITIS C VIRUS ANTIBODY NEGATIVE NEGATIVE [facility] HEPATITIS A ANTIBODY TOTAL POSITIVE(A) NEGATIVE [facility] HEPATITIS B CORE ANTIBODY NEGATIVE NEGATIVE [facility] Blood specimen (specimen) Blood / Unknown 06/11/2013 10:16 AM EST 06/11/2013 10:19 AM EST Narrative [facility] - 06/11/2013 1:42 PM EST [employer] [address] [place] [address] [place] [id number] ORD# [id number] Dominique Khoury PA-C LAB - BLOOD DRAW Edited Performing Organization Address City/[facility]/ZIP Co de Phone Number [facility] [address] [place] [address], from Last 3 Months or Most Recently Relevant to Health Maintenance Insurance [employer]/[facility] Member Subscriber Plan / Payer ( fective 2019-Present) Name:Dominic Barragan Relation to Subscriber:Self Name:Dominic Barragan Payer ID:[id number] Type:[id number] Address: [address] [place] [address] Care Teams Cake Decorator Relationship Specialty Start Date End Date Dominique Khoury PA-C [address] [place] [address] PCP - General 07/03/13
== END 2024-10-13 16:33 | disposition home or self-care (01) ==
LOC: HO.HUSH 16:04
PROVIDERS: Visit Provider Nurse Practitioner Family
DX: N28.1 Cyst of kidney, acquired (principal); N20.0 Calculus of kidney; Z13.9 Encounter for screening, unspecified
CPT/HCPCS: 99213

== ENCOUNTER → 2024-10-13 16:03 | Outpatient (BNVA) | payer BC, SELFPAY | PROVIDERS: Visit Provider Nurse Practitioner Family | DX: N20.0 Calculus of kidney (principal); N28.1 Cyst of kidney, acquired | CPT/HCPCS: 81003 ==

== ENCOUNTER 2025-04-14 01:25 | Emergency (ER) | payer BC, SELFPAY ==
--- NOTE | ~2025-04-14 | CT_ITS ---
EXAMINATION: CT HEAD WITHOUT CONTRAST CLINICAL INFORMATION: Dizziness, pressure in the head COMPARISON: July 22, 2022 TECHNIQUE: Contiguous axial imaging was performed from the skull base to vertex without intravenous administration of contrast. This CT examination was performed using dose optimization techniques as appropriate, variously including the following: *Automated exposure control *Adjustment of mA and/or kV according to patient size (this includes techniques or standardized protocols for targeted exams where dose is matched to indication/reason for exam; i.e. extremities or head) *Use of iterative reconstruction technique FINDINGS: There is no acute ischemic change. There is no intracranial hemorrhage. There is no mass-effect or midline shift. Basal cisterns and ventricles are within normal limits for age/cerebral volume. Orbits are symmetrical and unremarkable. Paranasal sinuses and mastoid air cells are pneumatized. There are no bony abnormalities. CT/CT head/brain wo IV con IMPRESSION: No acute intracranial abnormality. Electronically signed by: Cayden Britt MD 04/14/2025 11:13 AM EDT
--- NOTE | ~2025-04-14 | XR_ITS ---
CLINICAL HISTORY: cp Chest radiograph AP view Comparison: None Findings: Cardiomediastinal silhouette normal. No consolidations. No pleural effusion. No pneumothorax. No acute fracture. Soft tissue is unremarkable. Impression: No acute cardiopulmonary finding. This document has been electronically signed by: Moon Ramey MD on 04/14/2025 09:00:32
--- NOTE | 2025-04-14 01:26 | ECG_ITS ---
Test Reason : CP Blood Pressure : */* mmHG Vent. Rate : 76 BPM Atrial Rate : 76 BPM P-R Int : 142 ms QRS Dur : 96 ms QT Int : 398 ms P-R-T Axes : 40 -2 13 degrees QTcB Int : 447 ms Normal sinus rhythm Normal ECG When compared with ECG of 05-May-2024 14:51, No significant change was found Referred By: Generic ED Physician Electronically Signed By: ELVIA BRAGA
[2025-04-14 01:30] VITALS: BP 120/89; PULSE 80; RESP 18; TEMP 36.3; O2SAT 98; BMI 26.8
--- NOTE | 2025-04-14 01:39 | PC.NURSE ---
patient walking into the emergency room and knocked on triage door stating i think i am having a heart attack. pt looks visibly uncomfortable and clutching L. chest. patient taken to triage tech chair for ekg which was reviewed by MD Gaitan. pt reports CP onset at midnight woke him up from his sleep, radiating to L. arm. patient states he is getting light headed. wheelchair used to transport patient to ed10. labs ordered and being obtained by tech.
[2025-04-14 01:54] LABS: MANUAL DIFF FLAG NO
[2025-04-14 01:55] LABS: Hematocrit 40.7 % (42.0-52.0); Hemoglobin 14.6 g/dl (14.0-18.0); Imm Gran Abs Auto 0.01 X10*3/uL (0.00-0.03); Imm Gran Pct Auto 0.1 % (0.0-0.4); Lymphocytes Absolute Auto 2.6 X10*3/uL (1.2-4.9); Mean Corpuscular HGB Conc 35.9 g/dl (31.0-36.0); Mean Corpuscular Hemoglobin 31.2 pg (27.0-33.0); Mean Corpuscular Volume 87.0 fL (80.0-98.0); NRBC Abs Auto 0.000 X10*3/uL (0.0-0.012); NRBC Pct Auto 0.0 /100WBC (0.0-0.2); Platelet Count 197 X10*3/uL (160-400); Red Blood Count 4.68 X10*6/uL (4.60-5.80); White Blood Count 7.2 X10*3/uL (4.8-10.8)
[2025-04-14 01:59] LABS: INTERNATIONAL NORM RATIO 1.2 (0.9-1.1); Prothrombin Time 13.7 SEC (10.9-12.4)
--- OUTSIDE RECORDS SUMMARY | 2025-04-14 02:05 | XMS_ITS | Clinical Summary ---
Author Organization [facility] Address [address] [place] [address] Care Team Providers Care Grip Wrapper Name Role Phone Dominique Khoury PA-C Primary [...] (11/22/2019): COVID-19 Tracking [reviewed or updated 11/22/2019] Exposure to confirmed case or travel risk - No Date that symptoms began - N/A Patient risk factors for severe COVID-19: None Healthcare worker or engineer first assistant? No COVID-19 Tested? - No Is patient ? No Helicobacter pylori (H. [...] 96 08/25/2022 4:14 PM EST Temperature 36.9 C (98.4 F) 08/25/2022 4:14 PM EST Respiratory Rate 16 09/13/2018 2:02 PM EST [...] 3 - 19 + 3-dose series) 01/16/2008 [id number] ( season) 2025 Diabetes Screening 08/02/2025 08/02/2022, 0 08/02/2022, 09/24/2017, Additional history exists Hypertension Screening (#1) 08/24/2025 Hepatitis C Screening Completed 06/11/2013 Alcohol and Drug Screen Discontinued Depression Annual Screen Discontinued Imm-DTaP/Tdap/Td Discontinued Imm-HPV Discontinued Imm-Influenza Discontinued Procedures Procedure Name Priority Date/Time Associated Diagnosis Comments COMPREHENSIVE METABOLIC PANEL Routine 08/02/2022 9:34 AM EST Chronic LUQ pain HEPATITIS A,B,C PANEL Routine 06/11/2013 10:16 AM EST Sinusitis from Last 3 Months or Most Recently Relevant to Health Maintenance Results * (ABNORMAL) CMP (08/02/2022 9:34 AM EST) GLUCOSE 86 65 - 99 mg/dL [facility] Comment: Fasting reference interval UREA NITROGEN (BUN) 16 7 - 25 mg/dL [facility] CREATININE (blood) 1.03 0.60 - 1.26 mg/dL [facility] EGFR 98 > OR = 60 mL/min/1 .73m2 [facility] Comment: The eGFR is based on the CKD-EPI 2020 equation. To calculate the new eGFR from a previous Creatinine or Cystatin C result, go to https://www.kidney.org/professionals/ kdoqi/gfr%5Fcalculator BUN/CREATININE RATIO NOT APPLICABLE 6 - 22 [facility] SODIUM 138 135 - 146 mmol/L [facility] POTASSIUM 4.1 3.5 - 5.3 mmol/L [facility] CHLORIDE 101 98 - 110 mmol/L [facility] CARBON DIOXIDE 33(H) 20 - 32 mmol/L [facility] CALCIUM 9.7 8.6 - 10.3 mg/dL [facility] PROTEIN, TOTAL 6.6 6.1 - 8.1 g/dL [facility] ALBUMIN 4.3 3.6 - 5.1 g/dL [facility] GLOBULIN 2.3 1.9 - 3.7 g/dL (calc) [facility] ALBUMIN/GLOBUL IN RATIO 1.9 1.0 - 2.5 (calc) [facility] BILIRUBIN, TOTAL 0.7 0.2 - 1.2 mg/dL [facility] ALKALINE PHOSPHATASE 60 36 - 130 U/L [facility] AST 13 10 - 40 U/L [facility] ALT 21 9 - 46 U/L [facility] Blood Blood / Unknown 08/02/2022 9 :34 AM EST 08/02/2022 9:35 AM EST Rina To NP LAB - BLOOD DRAW Edited Result - Final [employer] [address] [address], [employer] [address] ([address]) [place] [address] * (ABNORMAL) HEPATITIS A,B,C PANEL (06/11/2013 10:16 AM EST) HEPATITIS B SURFACE ANTIBODY NEGATIVE NEGATIVE [facility] HEPATITIS B SURFACE ANTIGEN NEGATIVE NEGATIVE [facility] HEPATITIS C VIRUS ANTIBODY NEGATIVE NEGATIVE [facility] HEPATITIS A ANTIBODY TOTAL POSITIVE(A) NEGATIVE [facility] HEPATITIS B CORE ANTIBODY NEGATIVE NEGATIVE [facility] Blood specimen (specimen) Blood / Unknown 06/11/2013 10:16 AM EST 06/11/2013 10:19 AM EST Narrative [facility] - 06/11/2013 1:42 PM EST [employer] [address] [place] [address] [place] [id number] ORD# [id number] Dominique Khoury PA-C LAB - BLOOD DRAW Edited [facility] [employer] [address], from Last 3 Months or Most Recently Relevant to Health Maintenance Insurance [facility] [place] Care Teams Grip Wrapper Relationship Specialty Start Date End Date Dominique Khoury PA-C [address] [place] [phone] PCP - General 07/03/13
[2025-04-14 02:10] LABS: Alanine Aminotransferase 20 U/L (0-40); Albumin Level 4.3 g/dL (3.5-5.0); Alkaline Phosphatase 70 U/L (39-117); Anion Gap 13 (12-20); Aspartate Amino Transferase 21 U/L (5-37); Blood Urea Nitrogen 17 mg/dL (9-16); Calcium 9.1 mg/dL (8.4-10.2); Carbon Dioxide 27 mmol/L (22-29); Chloride 106 mmol/L (96-108); Creatinine Clr Calc Pharmacy 91.4; Estimated Glomerular Filt Rate > 60; Magnesium 1.9 mg/dL (1.6-2.6); Potassium 3.5 mmol/L (3.3-5.1); Sodium 142 mmol/L (135-145); Total Protein 6.6 g/dL (6.5-8.0)
[2025-04-14 02:15] LABS: Troponin-I High Sensitivity < 2.7 ng/L (<3.5-35.0)
[2025-04-14 02:34] VITALS: BP 109/73; PULSE 67; RESP 14; O2SAT 99
[2025-04-14 05:42] VITALS: BP 103/63; PULSE 80; RESP 14; O2SAT 99
--- NOTE | 2025-04-14 06:16 | ED.CHESTPAIN ---
HPI - Chest Pain General Chief Complaint: Chest Pain Stated Complaint: Chest Pain Time Seen by Provider: 04/14/25 06:08 Source: patient Mode of arrival: ambulatory Limitations: no limitations History of Present Illness ED Provider: DR. Dutta HPI narrative: 35-year-old male walked in for evaluation of left-sided chest pain started at 22:30 last night and woke the patient up from sleep pain was localized to the left side of the chest felt like somebody punched him in the chest wall and felt left upper arm was numb, pain was associated with pressure behind his neck, no shortness of breath, no fever, no chills, no trauma to the chest, no recent travel, no lower extremity swelling or tenderness, then patient fell back to sleep and woke up at 01:30 with same pain that is still constant 10 now patient feel it like muscle soreness on his left side, declined any strenuous activity or heavy lifting, patient declined smoking cigarettes or using drugs. Related Data Home Medications ?Medication ?Instructions ?Recorded ?Confirmed omeprazole 40 mg capsule,delayed 40 mg PO DAILY 10/13/24 release Allergies Allergy/AdvReac Type Severity Reaction Status Date / Time No Known Allergies Allergy Verified 04/14/25 01:31 Review of Systems Review of Systems: All other systems are reviewed and are negative Constitutional: Reports as per HPI and Reports no additional constitutional complaints Eyes: Reports as per HPI and Reports no additional eye complaints Reports system reviewed and no additional complaints, except as documented Cardiovascular: Reports as per HPI and Reports no additional cardiovascular complaints Respiratory: Reports as per HPI and Reports no additional respiratory complaints Gastrointestinal: Reports as per HPI and Reports no additional gastrointestinal complaints Genitourinary: Reports no additional female genitourinary complaints Musculoskeletal: Reports no additional musculoskeletal complaints Skin/Breast: Reports system reviewed and no additional complaints, except as docu Psychiatric: Reports no additional psychiatric complaints Endocrine: Reports no additional endocrine complaints Hematologic/Lymphatic: Reports no additional hematologic/lymphatic complaints Allergic/Immunologic: Reports no additional allergic/immunologic complaints Reports system reviewed and no additional complaints, except as documented and Reports Abnormal speech present [facility] Social History Social History Smoked in Last 30 Days: No Use of substances other than those prescribed or required for medical reasons: No Advance Directives: No Advance Directives Information Provided: Yes Do you have a plan to hurt others: No Plan Physical Exam Vital Signs: Vital Signs: Last Vital Signs Temp 97.8 F 04/14/25 08:42 Pulse 61 04/14/25 08:42 Resp 8 L 04/14/25 08:42 BP 110/69 04/14/25 08:42 Pulse Ox 98 04/14/25 08:42 O2 Del Method Room Air 04/14/25 08:42 BMI result Body Mass Index 26.8 Vital signs have been reviewed and appear to be correct. Blood pressure elevated. Heart rate normal. Respiratory rate normal. Temperature normal. Oxygen saturation normal. Appearance: Alert. Oriented X3. No acute distress. Head: Normal external exam. Normocephalic. Atraumatic. No Tovar signs noted. No raccoon eyes noted Eyes: PERRLA. EOMI. Conjunctiva and sclera normal. Eyelids normal. ENT: TM's Normal. Pharynx normal. Uvula midline. Moist mucous membranes. No trismus noted. No drooling noted. No muffled voice noted. Neck: Normal inspection. Neck supple. FROM. No adenopathy. Thyroid Normal. No meningeal signs. No neck mass noted. CVS: Normal heart rate and rhythm. Heart sound normal. No murmurs noted. Pulses normal throughout. Respiratory: No respiratory distress. Painless inspiration. Breath sounds normal. No wheezes/rales/rhonchi noted. Left chest wall mild tenderness to palpation, no step-off, no deformity,No accessory muscle usage noted or decreased air movement noted. Abdomen: Soft and nontender. Bowel sounds normal in all 4 quadrants. No distention noted. No organomegaly noted. No visible injury noted. Back: No CVA tenderness. Full range of motion noted. Skin: Skin warm and dry. Normal skin color. Normal skin turgor. No rashes/lesions/lacerations noted. Extremities: No lower extremity edema. Extremities exhibit normal range of motion. Extremities nontender. Neuro: Mental status: Normal attention, orientation, memory, and affect. Cranial nerves: Pupils are equal, round and reactive to light, EOMI, visual wang are fall, face is symmetric, facial sensations are normal. Motor examination normal muscle tone, strength to 4 extremities. DTR are +2, planter's are flexor. Sensory exam; normal coordination, no ataxia, gait stable. Cerebellar exam: [id number] and [id number] is normal. Extrapyramidal system: No tremors, no rigidity with normal facial expressions. Pronator drift not present Course Reevaluation(s) Reevaluation #1: sudden onset of left-sided chest pain was reproducible tenderness on the physical exam, negative workup with lower risk for ACS and pulmonary embolism. patient with known history of GERD and feel better with Maalox and omeprazole in the ED. Reassure with the patient and follow-up with PCP. Patient now is telling me that he has not slept for 3 nights because of his GERD condition and burning sensation. Patient feels pressure in the back of his head and lightheadedness, repeat neuro exam is unremarkable for abnormality, consider head CT. patient has no severe headache. Follow-up with Dr. Gómez as an outpatient. Time: 09:22 Reevaluation #2: repeat neuro exam is unremarkable, head CT is unremarkable. Time: 11:38 Medications Administered Discontinued Medications Generic Name Dose Route Start Last Admin Trade Name Freq PRN Reason Stop Dose Admin Al Hydroxide/Mg Hydroxide 30 ml 04/14/25 09:19 04/14/25 09:35 Magnesium Hydrox/Alum Hydrox 30 Ml Oral.Susp PO 04/14/25 09:20 30 ml ONCE ONE Administration Omeprazole 40 mg 04/14/25 09:19 04/14/25 09:35 Omeprazole 40 Mg Capsule.Dr PO 04/14/25 09:20 40 mg ONCE ONE Administration Medical Decision Making Differential Diagnosis Differential Diagnoses: The differential diagnosis associated with the presentation includes ( ACS, pulmonary embolism, pneumonia, pneumothorax, pleural effusion, GERD, myofascial chest pain, electrolyte derangement, severe anemia.) Admission/Observation Consideration of admission/observation: Escalation of care including admission/observation considered Lab Data MDM Lab Attestation statement: I reviewed the patient's lab results. 04/14/25 01:46 04/14/25 01:46 Labs: Lab Results 04/14/25 04/14/25 Range/Units 01:46 05:45 WBC 7.2 (4.8-10.8) X10*3/uL RBC 4.68 (4.60-5.80) X10*6/uL Hgb 14.6 (14.0-18.0) g/dl Hct 40.7 L (42.0-52.0) % MCV 87.0 (80.0-98.0) fL MCH 31.2 (27.0-33.0) pg MCHC 35.9 (31.0-36.0) g/dl RDW 11.8 (11.0-16.0) % Plt Count 197 (160-400) X10*3/uL MPV 9.3 L (9.4-12.4) fL Immature Gran % (Auto) 0.1 (0.0-0.4) % Neut % (Auto) 50.4 (45-73) % Lymph % (Auto) 36.2 (20-40) % Person % (Auto) 9.0 (2-11) % Eos % (Auto) 3.9 (0-4) % Baso % (Auto) 0.4 (0-2) % Lymph # (Auto) 2.6 (1.2-4.9) X10*3/uL Person # (Auto) 0.7 (0.1-1.2) X10*3/uL Eos # (Auto) 0.3 (0.0-0.4) X10*3/uL Baso # (Auto) 0.0 (0.0-0.2) X10*3/uL Abs Immat Gran (auto) 0.01 (0.00-0.03) X10*3/uL Absolute Neuts (auto) 3.6 (2.0-8.3) x10*3/uL Absolute Nucleated RBC 0.000 (0.0-0.012) X10*3/uL Nucleated RBC % (auto) 0.0 (0.0-0.2) /100WBC PT 13.7 H (10.9-12.4) SEC INR 1.2 H (0.9-1.1) D-Dimer High Sensitivty 162 NG/ML Sodium 142 (135-145) mmol/L Potassium 3.5 (3.3-5.1) mmol/L Chloride 106 (96-108) mmol/L Carbon Dioxide 27 (22-29) mmol/L Anion Gap 13 (12-20) BUN 17 H (9-16) mg/dL Creatinine 1.08 (0.5-1.4) mg/dL Estim Creat Clear Calc 91.4 Estimated GFR > 60 Random Glucose 101 (60-115) mg/dL Calcium 9.1 D (8.4-10.2) mg/dL Magnesium 1.9 (1.6-2.6) mg/dL Total Bilirubin 0.5 (0.0-1.0) mg/dL AST 21 (5-37) U/L ALT 20 (0-40) U/L Alkaline Phosphatase 70 (39-117) U/L Total Creatine Kinase 62 (38-174) U/L Troponin I High Sens < 2.7 < 2.7 (<3.5-35.0) ng/L Total Protein 6.6 (6.5-8.0) g/dL Albumin 4.3 (3.5-5.0) g/dL Independent Interpretation I performed an independent interpretation of an: Plain X-Ray ( Chest: No acute cardiopulmonary findings.) Radiology Impression Discussion of test interpretation with radiology: I have reviewed the radiologist's reading. Discharge Plan Discharge Clinical Impression: Atypical chest pain, Myofascial pain syndrome of chest Patient Disposition: Home, Self-Care Instructions: Chest Wall Pain (ED) Additional Instructions: follow-up with your primary doctor. Prescriptions: No Action omeprazole 40 mg capsule,delayed release(DR/EC) 40 mg PO DAILY Referrals: Carlos Alberto Gómez MD [Physician, Cardiology] Print Language: Other
[2025-04-14 06:23] LABS: Troponin-I High Sensitivity < 2.7 ng/L (<3.5-35.0)
[2025-04-14 06:29] LABS: D Dimer High Sensitivity 162 NG/ML
[2025-04-14 08:42] VITALS: BP 110/69; PULSE 61; RESP 8; TEMP 36.6; O2SAT 98
[2025-04-14] MEDS: Magnesium Hydrox/Alum Hydrox 30 ML ORAL.SUSP PO (09:35)
--- NOTE | 2025-04-14 11:06 | PC.NURSE ---
This RN assumed care of patient @ 0700 Patient denies c/p, sob, vision changes Patient c/o dizziness VSS and up to date EKG = NSR CXR = no acute findings Plan of care on going
[2025-04-14 11:47] VITALS: BP 105/67; PULSE 59; RESP 14; TEMP 36.6; O2SAT 98
== END 2025-04-14 11:49 | disposition home or self-care (01) ==
PROVIDERS: Emergency Provider Emergency Medicine
DX: R07.9 Chest pain, unspecified (principal); M79.18 Myalgia, other site; R42 Dizziness and giddiness; R51.9 Headache, unspecified
CPT/HCPCS: 36415; 70450; 71045; 80053; 82550; 83735; 84484; 85025; 85379; 85610; 93005; 99284; 99285

== ENCOUNTER → 2025-04-14 01:26 | Outpatient (BNV) | payer BC, SELFPAY | PROVIDERS: Emergency Provider Emergency Medicine; Visit Provider Internal Medicine | DX: R07.89 Other chest pain (principal) | CPT/HCPCS: 93010 ==

== ENCOUNTER → 2025-04-14 06:15 | Outpatient (BNV) | payer BC, SELFPAY | PROVIDERS: Emergency Provider Emergency Medicine; Visit Provider Radiology Diagnostic Radiology | DX: R51.9 Headache, unspecified (principal); R42 Dizziness and giddiness; R07.89 Other chest pain | CPT/HCPCS: 70450; 71045 ==